=== PATIENT | male | born 1940 | race African-American/Black ===

== ENCOUNTER 2024-04-23 18:28 | Inpatient (IN) | payer OTHER ==
[2024-04-23] MEDS ORDERED: METHYLPREDNISOLONE 40 MG INJ ONE (19:16)
[2024-04-23 19:24] LABS: Absolute Basophils 0.1 K/uL (0-0.5); Absolute Eosinophils 0.1 K/uL (0-0.5); Absolute Monocytes 0.9 K/uL (0.1-1.3); Absolute Neutrophil 8.2 K/uL (1.8-8.0); Eosinophils % 1.4 % (0-4.4); Hematocrit 36.5 % (39.6-49.0); Hemoglobin 10.9 g/dL (13.6-17.9); MCH 21.1 pg (27.0-35.0); MCHC 29.9 g/dL (32.0-36.0); MCV 70.7 fL (80-100); Monocytes % 8.4 % (3.3-12.3); Neutrophils % 79.2 % (41.7-73.7); Nucleated Red Blood Cells % 0.1 % (0-0); Platelets 244 thou/uL (152-406); RBC Red Blood Cell Count 5.16 M/uL (4.33-5.43); Red Cell Distribution Width 29.8 % (12.1-15.2)
[2024-04-23 19:26] LABS: Anisocytosis 3+; Blood Morphology Comment NOTED (NOT SEEN); Hypochromasia 1+; Platelet Estimate ADEQ; White Blood Cell Scan OK (OK)
[2024-04-23 19:28] LABS: PT Prothrombin Time 21.3 SECONDS (9.4-12.5); Protime INR 2.04
--- NOTE | 2024-04-23 20:22 | RAD REPORT ---
EXAMINATION: CT HEAD WITHOUT CONTRAST CLINICAL INDICATION: Male, 84 years old.weak/numb legs;Weakness TECHNIQUE: Axial CT images from the skull base to the vertex without intravenous contrast. Coronal an d sagittal reformatted images were created from the data set. One or more of the following dose reduction techniques were used: Automated exposure control, adjustment of the mA and/or kV according to patient size, and/or iterative reconstruction. Unless otherwise specified, incidental findings do not require dedicated imaging follow-up. [id number]. COMPARISON: No prior exam. FINDINGS: INTRACRANIAL: No acute intracranial hemorrhage. No hydrocephalus. No mass effect or midline shift. Mi ld chronic small vessel ischemic changes.Age advanced cerebral atrophy. VASCULATURE: No visualized abnormalities in the arteries or dural venous sinuses. SCALP/SKULL: No significant soft tissue or osseous abnormalities. SINUSES: The visualized paranasal sinuses and mastoid air cells are predominantly clear. IMPRESSION: No acute intracranial abnormality.
[2024-04-23 20:48] LABS: ALT/SGPT 17 U/L (16-61); AST/SGOT 16 U/L (15-37); Albumin 2.6 g/dL (3.4-5.0); Albumin/Globulin Ratio 0.5 (1.1-1.8); Alkaline Phosphatase 141 U/L (45-117); BUN Blood Urea Nitrogen 87 mg/dL (7-18); Bicarbonate 23 mEq/L (21-32); Bilirubin Total 0.3 mg/dL (0.2-1.0); Globulin 5.6 g/dL (2.3-3.5); Glomerular Filtration Rate 18 ml/min (=/>90); Glucose Level 354 mg/dL (74-106); Magnesium 2.4 mg/dL (1.6-2.4); NT PRO-BNP 585 pg/mL (<450); Protein, Total 8.2 g/dL (6.4-8.2); Sodium Level 124 mEq/L (136-145); Troponin High Sensitivity 32.4 pg/mL (<58.9)
[2024-04-23 20:57] LABS: Bilirubin Direct < 0.2 mg/dL (0-0.2); Bilirubin Indirect, Calculated 0.1 mg/dL (0.2-0.8)
--- NOTE | 2024-04-23 22:13 | RAD REPORT ---
EXAM: CT CHEST, ABDOMEN AND PELVIS WITHOUT CONTRAST CLINICAL INDICATION: Male, 84 years old colon cancer TECHNIQUE: CT chest, abdomen and pelvis was performed, without IV contrast, as per department protoco l. Axial, sagittal and coronal reconstructions were obtained. One or more of the following dose reduction techniques were used: Automated exposure control, adjustment of the mA and/or kV according to the patient size, and/or iterative reconstruction. Unless otherwise specified, incidental findings do not require dedicated imaging follow-up. [id number]. COMPARISON: No prior exam. FINDINGS: The lack of intravenous contrast limits the sensitivity of this exam for evaluation of solid visceral organs, vascular structures, and retroperitoneum. Chest: LOWER NECK: Visualized thyroid gland and soft tissues are normal. Right upper chest wall pacemaker. LUNGS AND AIRWAYS: Airways are clear. No evidence of airspace or interstitial process.Centrilobular p araseptal emphysema. A few scattered sub-4 mm pulmonary nodules are noted which are probably benign. PLEURA: No pleural effusion. No pneumothorax. Hemidiaphragms are normally positioned. MEDIASTINUM AND LYMPH NODES: No mediastinal mass or fluid collection. Normal size mediastinal, hilar, and axillary lymph nodes. Mild distal esophageal thickening. Small hiatal hernia. THORACIC AORTA: Ascending thoracic aortic aneurysm measuring 4.2 cm. PULMONARY ARTERIES: Caliber is within normal limits. HEART: Normal heart size. Multivessel coronary artery diseaseNo significant pericardial effusion. Abdomen/Pelvis UPPER GI: No significant abnormality. LIVER: No significant focal abnormality. GALLBLADDER/BILE DUCTS: Cholecystectomy. No significant biliary ductal dilatation.? PANCREAS: Atrophy, but otherwise unremarkable. SPLEEN: Unremarkable. ADRENALS: Adrenal thickening without discrete mass. KIDNEYS AND URETERS: No hydronephrosis.Intermediate attenuation 1.8 cm lesion at the interpolar aspec t of the left kidney.Other low-density renal lesions bilaterally which are probably cysts. ABDOMINAL AORTA AND OTHER VESSELS: Moderate atherosclerotic changes without aortic aneurysm. IVC filt er PERITONEUM: No abnormal free fluid. No free air. LYMPH NODES: No pathologic lymphadenopathy. ABDOMINAL WALL: Unremarkable SMALL BOWEL/COLON: Mass present at the mid sigmoid colon presumably the patient's known colonic malig desean. No bowel obstruction. Mild diverticulosis without diverticulitis. URINARY BLADDER: Underdistended but grossly unremarkable. REPRODUCTIVE ORGANS: Prostatomegaly. MUSCULOSKELETAL: Multilevel degenerative changes in the spine. No acute fracture. L1 hemangioma. ADDITIONAL FINDINGS: None. IMPRESSION: 1. No acute findings within the chest, abdomen, or pelvis. 2. Mid sigmoid mass presumably the patient's reported colon cancer. No bowel obstruction. 3. Indeterminate renal lesions which can be further evaluated with nonemergent renal protocol CT or M RI clinically indicated.
--- NOTE | 2024-04-23 22:29 | RAD REPORT ---
EXAMINATION: US LOWER EXTREMITY VENOUS DOPPLER BILATERAL CLINICAL INDICATION: Male, 84 years old.bilateral leg swelling TECHNIQUE: Complete bilateral duplex sonography of the lower extremity veins was performed. The exami nation included compression for vein patency, color Doppler imaging and flow augmentation in response to distal compression of the distal external iliac, common femoral, femoral, popliteal, luciana ethel, tibial and great saphenous veins. [id number]. COMPARISON: No prior exams FINDINGS: Duplex sonography imaging demonstrates all deep examined to be fully compressible with spontaneous, p hasic and augmented flow bilaterally except for the right femoral vein which was incompletely compressible consistent with partially occlusive thrombus.. IMPRESSION: Positive for deep venous thrombosis in the right lower extremity. Incompletely occlusive thrombus in the right femoral vein present.. Negative for DVT in the left lower extremity. THIS REPORT CONTAINS FINDINGS THAT MAY BE CRITICAL TO PATIENT CARE. The emergent findings were commun icated to Dr. Carranza on 04/23/2024 10:26 PM.
--- NOTE | 2024-04-23 22:32 | RAD REPORT ---
EXAM: Right upper extremity venous ultrasound HISTORY: Right upper extremity pain and edema COMPARISON: None TECHNIQUE: Multiplanar grayscale and color Doppler images were obtained in a right upper extremity ve nous ultrasound. Spectral analysis of the Doppler waveforms were performed. FINDINGS: The internal jugular vein demonstrates normal compression and flow without evidence of thrombus. The subclavian vein demonstrates normal flow and augmentation without evidence of thrombus. The axillary vein demonstrates normal compression, flow, and augmentation without evidence of thrombu s. The right brachial vein has eccentric thrombus and is only partially compressible. The venous structures distal to the elbow are patent without thrombus. The cephalic and basilic veins are patent. IMPRESSION: Partially compressible right brachial vein consistent with nonocclusive right upper extremity deep ve nous thrombosis. THIS REPORT CONTAINS FINDINGS THAT MAY BE CRITICAL TO PATIENT CARE. The emergent findings were commun icated to Dr. Carranza on 04/23/2024 10:30 PM.
[2024-04-23] MEDS ORDERED: NA CHLORIDE 0.9% 500 ML ONE (22:35)
[2024-04-23] MEDS ORDERED: NA CHLORIDE 0.9% 1,000 ML ONE (22:35)
[2024-04-23] MEDS ORDERED: ALBUMIN HUMAN 25% 200 ML IV ONE (22:36)
--- NOTE | 2024-04-24 00:30 | ER ---
Nurse's Notes [facility] Name: Branden Adams Age: 84 yrs Sex: Male : 1940 Arrival Date: 04/23/2024 Time: 18:28 Bed 25 Private MD: Diagnosis: Acute on chronic renal failure, Hyponatremia, history of colon cancer, generalized weakness, hypoalbuminemia, Presentation: 04/23 18:35 Chief complaint: EMS states: Pt called for allergic reaction and hives. Was in the [address] 2 weeks ago for low hemoglobin and he was given Vanc which the pt is allergic to. Pt started having hives on his thighs, stomach, neck and face. BGL 393. Coronavirus screen: At this time, the client does not indicate any symptoms associated with coronavirus-19. Ebola Screen: No symptoms or risks identified at this time. 18:35 Method Of Arrival: EMS: [facility] 18:37 Onset: The symptoms/episode began/occurred gradually, 2 day(s) ago. Anaphylaxis [facility] evaluation, no signs or symptoms of anaphylaxis were noted. Initial Sepsis Screen: Does the patient meet any 2 criteria? No. Patient's initial sepsis screen is negative. Does the patient have a suspected source of infection? No. Patient's initial sepsis screen is negative. Risk Assessment: Do you want to hurt yourself or someone else? Patient reports no desire to harm self or others. 18:37 Acuity: JAD 3 jb4 Historical: - Allergies: 18:37 Vancomycin; jb4 18:37 PENICILLINS; jb4 18:37 Benadryl; jb4 - PMHx: 18:37 CHF; HTN; Colon CA; Pace maker; jb4 - Immunization history:: Adult Immunizations up to date. - Infectious Disease History:: Denies. - Social history:: Smoking status: Patient denies any tobacco usage or history of. Screenin:[address] [facility] ED Fall Risk Assessment (Adult) History of falling in the last 3 months, 4 including since admission No falls in past 3 months (0 pts) Confusion or Disorientation No (0 pts) Intoxicated or Sedated No (0 pts) Impaired Gait No (0 pts) Mobility Assist Device Used No (0 pt) Altered Elimination No (0 pt) Score/Fall Risk Level 0 - 2 = Low Risk Oriented to surroundings, Maintained a safe environment. Abuse screen: Denies threats or abuse. Nutritional screening: No deficits noted. Tuberculosis screening: No symptoms or risk factors identified. Assessment: 18:37 General: Appears in no apparent distress. uncomfortable, Behavior is calm, cooperative, jb4 appropriate for age. Pain: Complains of pain in right quadriceps and left quadriceps Pain does not radiate. Pain currently is 4 out of 10 on a pain scale. Quality of pain is described as itching Pain began 2-3 days ago. Neuro: Level of Consciousness is awake, alert, obeys commands, Oriented to person, place, time, situation. Cardiovascular: Patient's skin is warm and dry. Respiratory: Airway is patent Respiratory effort is even, unlabored, Respiratory pattern is regular, symmetrical. Derm: Skin is intact, Skin is pink, warm \T\ dry. Decubitus located on right heel(s) approximately 2.6 cm to 7.5 cm is stage I. Musculoskeletal: Circulation, motion, and sensation intact. Range of motion: intact in all extremities. 20:00 Reassessment: Patient appears in no apparent distress at this time. Patient and/or jb4 family updated on plan of care and expected duration. Pain level reassessed. Patient is alert, oriented x 3, equal unlabored respirations, skin warm/dry/pink. 21:00 Reassessment: Patient appears in no apparent distress at this time. Patient and/or jb4 family updated on plan of care and expected duration. Pain level reassessed. Patient is alert, oriented x 3, equal unlabored respirations, skin warm/dry/pink. 22:00 Reassessment: Patient appears in no apparent distress at this time. Patient and/or jb4 family updated on plan of care and expected duration. Pain level reassessed. Patient is alert, oriented x 3, equal unlabored respirations, skin warm/dry/pink. 23:00 Reassessment: Patient appears in no apparent distress at this time. Patient and/or jb4 family updated on plan of care and expected duration. Pain level reassessed. Patient is alert, oriented x 3, equal unlabored respirations, skin warm/dry/pink. Vital Signs: 18:37 BP 125 / 80; Pulse 79; Resp 16; Temp 98.7(O); Pulse Ox 98% on R/A; Weight 108.41 kg jb4 (R); Height 6 ft. 3 in. (R); 20:29 BP 115 / 67; Pulse 75; Resp 16; Pulse Ox 96% on R/A; jb4 22:00 BP 118 / 76; Pulse 80; Resp 16; Pulse Ox 99% on R/A; jb4 23:15 BP 129 / 82; Pulse 78; Resp 20; Pulse Ox 99% on R/A; jb4 04/24 01:02 BP 140 / 73; Pulse 72; Resp 15; Pulse Ox 96% on R/A; jb4 04/23 18:37 Body Mass Index 29.87 (108.41 kg, 190.5 cm) jb4 ED Course: 04/23 18:30 Patient arrived in ED. iw 18:31 Jose E Stephens MD is Attending Physician. sp3 18:35 Livan Daniels, FERNANDO is Primary Nurse. jb4 18:37 Arm band placed on right wrist. jb4 18:42 Triage completed. jb4 19:00 No provider procedures requiring assistance completed. Inserted saline lock: 20 gauge jb4 in left antecubital area, using aseptic technique. Blood collected. 19:00 Initial lab(s) drawn, by me, sent to lab. jb4 20:07 CT Head Brain wo Cont In Process Unspecified. EDMS 20:30 Patient has correct armband on for positive identification. Allergy band placed. Bed in jb4 low position. Call light in reach. Side rails up X 1. Provided Education on: plan of care. 21:21 Attending Physician role handed off by Jose E Stephens MD sp4 21:21 Inocente Carranza MD is Attending Physician. sp4 21:56 CT Chest Abdomen Pelvis W/O Contrast In Process Unspecified. EDMS 22:22 Extrem Venous W Compression [place] US In Process Unspecified. EDMS 22:22 UPPER EXTREMITY VENOUS UNILATE In Process Unspecified. EDMS 04/24 00:[address] MD is Hospitalizing Provider. sp4 01:03 Patient admitted, IV remains in place. jb4 Administered Medications: 04/23 19:21 Drug: MethylPrednisoLONE IVP 60 mg IVP once Route: IVP; Site: left antecubital; jb4 20:00 Follow up: Response: No adverse reaction jb4 22:45 Drug: Albumin IVPB 25 grams 100 ml IVPB once; (Note: Albumin 25% concentration) Volume: jb4 100 ml; Route: IVPB; Site: left antecubital; 23:27 Follow up: Response: No adverse reaction; IV Status: Completed infusion; IV Intake: jb4 100ml 22:45 Drug: NS 0.9% IV 500 ml 500 ml IV at 1 bolus once; to be given as a bolus over 30 jb4 minutes Volume: 500 ml; Route: IV; Rate: 1 bolus; Site: left antecubital; 23:15 Follow up: Response: No adverse reaction; IV Status: Completed infusion; IV Intake: jb4 500ml 23:27 Drug: Albumin IVPB 25 grams 100 ml IVPB once; (Note: Albumin 25% concentration) Volume: jb4 100 ml; Route: IVPB; Site: left antecubital; 04/24 01:06 Follow up: Response: No adverse reaction; IV Status: Completed infusion; IV Intake: jb4 100ml 04/23 23:34 Drug: NS 0.9% IV 1000 ml IV at 100 ml/hr Per protocol; to be given as a bolus over 60 jb4 minutes Route: IV; Rate: 100 ml/hr; Site: left antecubital; 04/24 01:06 Follow up: Response: No adverse reaction; IV Status: Infusion continued upon admission jb4 Medication: 01:03 VIS not applicable for this client. jb4 Intake: 04/23 23:15 IV: 500ml; Total: 500ml. jb4 23:27 IV: 100ml; Total: 600ml. jb4 04/24 01:06 IV: 100ml; Total: 700ml. jb4 Outcome: 00:29 Decision to Hospitalize by Provider. sp4 01:03 Admitted to ER Hold. Please see [facility] for further documentation. jb4 01:03 Condition: stable 01:03 Discharge instructions given to patient, Instructed on the need for admit, Demonstrated understanding of instructions, 02:28 Patient left the ED. lg3 Signatures: Dispatcher [employer] EDMS Concetta Hyde RN RN iw Bryson, James, RN RN jb4 Angie Magaña RN RN lg3 Jose E Stephens MD MD sp3 Inocente Carranza MD MD sp4 Corrections: (The following items were deleted from the chart) 04/23 23:35 18:37 Derm: Skin is intact, Skin is pink, warm \T\ dry. jb4 jb4
--- NOTE | 2024-04-24 00:30 | EDPHYS ---
Physician Documentation [facility] Name: Branden Adams Age: 84 yrs Sex: Male : 1940 Arrival Date: 04/23/2024 Time: 18:28 Bed 25 Private MD: ED Physician Inocente Carranza HPI: 04/23 19:26 This 84 yrs old Black Male presents to ER via EMS with complaints of Itching, sp3 generalized weakness. 19:26 84-year-old male with history of CHF, hypertension, colon cancer, status post pacemaker sp3 with recent discharge from [facility] for GI bleed now presents to the ED with chief complaint generalized weakness, numbness of bilateral lower extremities, and itching. Patient states that he had an allergic reaction to vancomycin while he was at [facility]. 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 Patient is a poor historian. He denies any continued melena, shortness of breath, chest pain, headache but he states that the numbness is only since he was released from the hospital 1 week ago.. 21:41 Patient was just discharged from [facility] 04/13/2024. Medications on discharge sp4 acetaminophen, evening, brimonidine, Jardiance 10 mg daily, ferrous sulfate daily gabapentin 300 mg twice a day, insulin glargine 10 units every morning, latanoprost, metoprolol tartrate 50 mg daily, omeprazole 20 daily, prednisolone ophthalmic suspension, rivaroxaban or Xarelto 20 mg daily, spironolactone 50 mg daily, tamsulosin daily, torsemide 20 mg oral Demadex 20 mg daily. Atorvastatin 20. 21:43 Based on record patient was managed at [facility] 04/04/2024 through 04/13/2024. sp4 Patient reportedly has history of colon cancer, follow-up was scheduled with Dr. Sheri Crabtree MD also [facility] primary care.. Historical: - Allergies: 18:37 Vancomycin; jb4 18:37 PENICILLINS; jb4 18:37 Benadryl; jb4 - PMHx: 18:37 CHF; HTN; Colon CA; Pace maker; jb4 - Immunization history:: Adult Immunizations up to date. - Infectious Disease History:: Denies. - Social history:: Smoking status: Patient denies any tobacco usage or history of. ROS: 19:31 Eyes: Negative for injury, pain, redness, and discharge, ENT: Negative for injury, sp3 pain, and discharge, Neck: Negative for injury, pain, and swelling, Cardiovascular: Negative for chest pain, palpitations, and edema, MS/Extremity: Negative for injury and deformity, Psych: Negative for depression, anxiety, suicide ideation, homicidal ideation, and hallucinations, Allergy/Immunology: Negative for hives, rash, and allergies, Endocrine: Negative for neck swelling, polydipsia, polyuria, polyphagia, and marked weight changes, 19:31 All other systems are negative, Exam: 19:31 Constitutional: This is a well developed, well nourished patient who is awake, alert, sp3 and in no acute distress. Head/Face: Normocephalic, atraumatic. Eyes: Pupils equal round and reactive to light, extra-ocular motions intact. Lids and lashes normal. Conjunctiva and sclera are non-icteric and not injected. Cornea within normal limits. Periorbital areas with no swelling, redness, or edema. ENT: Nares patent. No nasal discharge, no septal abnormalities noted. External auditory canals are clear. Oropharynx with no redness, swelling, or masses, exudates, or evidence of obstruction, uvula midline. Mucous membranes moist. Neck: Trachea midline, no thyromegaly or masses palpated, and no cervical lymphadenopathy. Supple, full range of motion without nuchal rigidity, or vertebral point tenderness. No Meningismus. Chest/axilla: Normal chest wall appearance and motion. Nontender with no deformity. No lesions are appreciated. Cardiovascular: Regular rate and rhythm with a normal S1 and S2. No gallops, murmurs, or rubs. Normal PMI, no JVD. No pulse deficits. Respiratory: Lungs have equal breath sounds bilaterally, clear to auscultation and percussion. No rales, rhonchi or wheezes noted. No increased work of breathing, no retractions or nasal flaring. Abdomen/GI: Soft, non-tender, with normal bowel sounds. No distension or tympany. No guarding or rebound. No evidence of tenderness throughout. Back: No spinal tenderness. No costovertebral tenderness. Full range of motion. MS/ Extremity: Pulses equal, no cyanosis. Neurovascular intact. Full, normal range of motion. Psych: Awake, alert, with orientation to person, place and time. Behavior, mood, and affect are within normal limits. 19:31 Skin: Scattered rash consistent with possible hives noted on chest and upper thighs as well as right upper extremity.. 19:31 Neuro: Normal neurological exam however patient states that he has numbness bilateral lower extremities. Patient did not follow to point discrimination test well. Limited history and physical., Vital Signs: 18:37 BP 125 / 80; Pulse 79; Resp 16; Temp 98.7(O); Pulse Ox 98% on R/A; Weight 108.41 kg jb4 (R); Height 6 ft. 3 in. (R); 20:29 BP 115 / 67; Pulse 75; Resp 16; Pulse Ox 96% on R/A; jb4 22:00 BP 118 / 76; Pulse 80; Resp 16; Pulse Ox 99% on R/A; jb4 23:15 BP 129 / 82; Pulse 78; Resp 20; Pulse Ox 99% on R/A; jb4 04/24 01:02 BP 140 / 73; Pulse 72; Resp 15; Pulse Ox 96% on R/A; jb4 04/23 18:37 Body Mass Index 29.87 (108.41 kg, 190.5 cm) jb4 MDM: 04/23 18:44 Medical Screening Exam initiated sp3 19:32 Data reviewed: vital signs, nurses notes, old medical records, lab test result(s), sp3 radiologic studies. ED course: 84-year-old male with PMH above with recent GI bleed now with generalized weakness and numbness and weakness of bilateral lower extremities. Patient also has itching and urticaria. Differential diagnosis includes allergic reaction, dehydration, continued GI bleed, electrolyte abnormality, to lesser degree TIA/CVA spectrum. Will obtain general labs, CT scan of the head, EKG and administer Solu-Medrol. Patient declined Benadryl stating that he may be allergic to that as well. Personal manager critical care is at bedside. Disposition probable admission for observation at minimum. Will sign out to nighttime physician for final reevaluation and final disposition.. 21:23 Differential Diagnosis altered mental status, sepsis, flu. Consideration of sp4 Admission/Observation Escalation of care including admission/observation considered. ED course: CLINICAL INDICATION: Male, 84 years old.weak/numb legs;Weakness TECHNIQUE: Axial CT images from the skull base to the vertex without intravenous contrast. Coronal and sagittal reformatted images were created from the data set. One or more of the following dose reduction techniques were used: Automated exposure control, adjustment of the mA and/or kV according to patient size, and/or iterative reconstruction. Unless otherwise specified, incidental findings do not require dedicated imaging follow-up. [id number]. COMPARISON: No prior exam. FINDINGS: INTRACRANIAL: No acute intracranial hemorrhage. No hydrocephalus. No mass effect or midline shift. Mild chronic small vessel ischemic changes.Age advanced cerebral atrophy. VASCULATURE: No visualized abnormalities in the arteries or dural venous sinuses. SCALP/SKULL: No significant soft tissue or osseous abnormalities. SINUSES: The visualized paranasal sinuses and mastoid air cells are predominantly clear. IMPRESSION: No acute intracranial abnormality. . 23:10 ED course: EXAM: CT CHEST, ABDOMEN AND PELVIS WITHOUT CONTRAST CLINICAL INDICATION: sp4 Male, 84 years old colon cancer TECHNIQUE: CT chest, abdomen and pelvis was performed, without IV contrast, as per department protocol. Axial, sagittal and coronal reconstructions were obtained. One or more of the following dose reduction techniques were used: Automated exposure control, adjustment of the mA and/or kV according to the patient size, and/or iterative reconstruction. Unless otherwise specified, incidental findings do not require dedicated imaging follow-up. [id number]. COMPARISON: No prior exam. FINDINGS: The lack of intravenous contrast limits the sensitivity of this exam for evaluation of solid visceral organs, vascular structures, and retroperitoneum. Chest: LOWER NECK: Visualized thyroid gland and soft tissues are normal. Right upper chest wall pacemaker. LUNGS AND AIRWAYS: Airways are clear. No evidence of airspace or interstitial process.Centrilobular paraseptal emphysema. A few scattered sub-4 mm pulmonary nodules are noted which are probably benign. PLEURA: No pleural effusion. No pneumothorax. Hemidiaphragms are normally positioned. MEDIASTINUM AND LYMPH NODES: No mediastinal mass or fluid collection. Normal size mediastinal, hilar, and axillary lymph nodes. Mild distal esophageal thickening. Small hiatal hernia. THORACIC AORTA: Ascending thoracic aortic aneurysm measuring 4.2 cm. PULMONARYARTERIES: Caliber is within normal limits. HEART: Normal heart size. Multivessel coronary artery diseaseNo significant pericardial effusion. Abdomen/Pelvis UPPER GI: No significant abnormality. LIVER: No significant focal abnormality. GALLBLADDER/BILE DUCTS: Cholecystectomy. No significant biliary ductal dilatation.? PANCREAS: Atrophy, but otherwise unremarkable. SPLEEN: Unremarkable. ADRENALS: Adrenal thickening without discrete mass. KIDNEYS AND URETERS: No hydronephrosis.Intermediate attenuation 1.8 cm lesion at the interpolar aspect of the left kidney.Other low-density renal lesions bilaterally which are probably cysts. ABDOMINAL AORTA AND OTHER VESSELS: Moderate atherosclerotic changes without aortic aneurysm. IVC filter. PERITONEUM: No abnormal free fluid. No free air. LYMPH NODES: No pathologic lymphadenopathy. ABDOMINAL WALL: Unremarkable SMALL BOWEL/COLON: Mass present at the mid sigmoid colon presumably the patient's known colonic malignancy. No bowel obstruction. Mild diverticulosis without diverticulitis. URINARYBLADDER: Underdistended but grossly unremarkable. REPRODUCTIVE ORGANS: Prostatomegaly. MUSCULOSKELETAL: Multilevel degenerative changes in the spine. No acute fracture. L1 hemangioma. ADDITIONAL FINDINGS: None. IMPRESSION: 1. No acute findings within the chest, abdomen, or pelvis. 2. Mid sigmoid mass presumably the patient's reported colon cancer. No bowel obstruction. 3. Indeterminate renal lesions which can be further evaluated with nonemergent renal protocol CT or MRI clinically indicated. . 23:12 ED course: EXAM: Right upper extremity venous ultrasound HISTORY: Right upper extremity sp4 pain and edema COMPARISON: None TECHNIQUE: Multiplanar grayscale and color Doppler images were obtained in a right upper extremity venous ultrasound. Spectral analysis of the Doppler waveforms were performed. FINDINGS: The internal jugular vein demonstrates normal compression and flow without evidence of thrombus. The subclavian vein demonstrates normal flow and augmentation without evidence of thrombus. The axillary vein demonstrates normal compression, flow, and augmentation without evidence of thrombus. The right brachial vein has eccentric thrombus and is only partially compressible. The venous structures distal to the elbow are patent without thrombus. The cephalic and basilic veins are patent. IMPRESSION: Partially compressible right brachial vein consistent with nonocclusive right upper extremity deep venous thrombosis. THIS REPORT CONTAINS FINDINGS THAT MAYBE CRITICAL TO PATIENT CARE. The emergent findings were communicated to Dr. Carranza on 04/23/2024 10:30 PM.. ED course: EXAMINATION: US LOWER EXTREMITYVENOUS DOPPLER BILATERAL CLINICAL INDICATION: Male, 84 years old.bilateral leg swelling TECHNIQUE: Complete bilateral duplex sonography of the lower extremity veins was performed. The examination included compression for vein patency, color Doppler imaging and flow augmentation in response to distal compression of the distal external iliac, common femoral, femoral, popliteal, peroneal, tibial and great saphenous veins. [id number]. COMPARISON: No prior exams FINDINGS: Duplex sonography imaging demonstrates all deep examined to be fully compressible with spontaneous, phasic and augmented flow bilaterally except for the right femoral vein which was incompletely compressible consistent with partially occlusive thrombus.. IMPRESSION: Positive for deep venous thrombosis in the right lower extremity. Incompletely occlusive thrombus in the right femoral vein present.. Negative for DVT in the left lower extremity. THIS REPORT CONTAINS FINDINGS THAT MAYBE CRITICAL TO PATIENT CARE. The emergent findings were communicated to Dr. Carranza on 04/23/2024 10:26 PM. . 04/23 18:54 Order name: Basic Metabolic Panel; Complete Time: 21:21 sp3 04/23 18:54 Order name: CBC with Diff; Complete Time: 20:02 sp3 04/23 18:54 Order name: LFT's; Complete Time: 21:21 sp3 04/23 18:54 Order name: Magnesium; Complete Time: 21:21 sp3 04/23 18:54 Order name: NT PRO-BNP; Complete Time: 21:21 sp3 04/23 18:54 Order name: PT-INR; Complete Time: 20:02 sp3 04/23 18:54 Order name: Troponin HS; Complete Time: 21:21 sp3 04/23 19:27 Order name: CBC Smear Scan; Complete Time: 20:02 EDMS 04/24 01:09 Order name: Osmolality, Urine EDMS 04/24 01:09 Order name: UR SODIUM EDMS 04/24 01:09 Order name: Urinalysis w/ reflexes EDMS 04/24 01:09 Order name: CBC with Automated Diff EDMS 04/24 01:09 Order name: CBC with Automated Diff EDMS 04/24 01:09 Order name: Comprehensive Metabolic Panel EDMS 04/24 01:09 Order name: Comprehensive Metabolic Panel EDMS 04/24 01:09 Order name: Magnesium EDMS 04/24 01:09 Order name: Magnesium EDMS 04/24 01:09 Order name: Phosphorus EDMS 04/24 01:09 Order name: Phosphorus EDMS 04/24 01:09 Order name: Basic Metabolic Panel EDMS 04/23 18:54 Order name: CT Head Brain wo Cont; Complete Time: 21:21 sp3 04/23 21:36 Order name: CT Chest Abdomen Pelvis W/O Contrast; Complete Time: 00:22 sp4 04/23 21:38 Order name: Extrem Venous W Compression [place] US; Complete Time: 00:22 sp4 04/23 21:45 Order name: UPPER EXTREMITY VENOUS UNILATE; Complete Time: 00:22 EDMS 04/23 18:54 Order name: Cardiac monitoring; Complete Time: 19:15 sp3 04/23 18:54 Order name: EKG - Nurse/Tech; Complete Time: 20:23 sp3 04/23 18:54 Order name: IV Saline Lock; Complete Time: 19:15 sp3 04/23 18:54 Order name: Labs collected and sent; Complete Time: 19:15 sp3 04/23 18:54 Order name: O2 Per Protocol; Complete Time: 19:15 sp3 04/23 18:54 Order name: O2 Sat Monitoring; Complete Time: 19:15 sp3 04/23 19:34 Order name: Labs - recollect needed: green top; Complete Time: 20:21 kmf Administered Medications: 19:21 Drug: MethylPrednisoLONE IVP 60 mg IVP once Route: IVP; Site: left antecubital; jb4 20:00 Follow up: Response: No adverse reaction jb4 22:45 Drug: Albumin IVPB 25 grams 100 ml IVPB once; (Note: Albumin 25% concentration) Volume: jb4 100 ml; Route: IVPB; Site: left antecubital; 23:27 Follow up: Response: No adverse reaction; IV Status: Completed infusion; IV Intake: jb4 100ml 22:45 Drug: NS 0.9% IV 500 ml 500 ml IV at 1 bolus once; to be given as a bolus over 30 jb4 minutes Volume: 500 ml; Route: IV; Rate: 1 bolus; Site: left antecubital; 23:15 Follow up: Response: No adverse reaction; IV Status: Completed infusion; IV Intake: jb4 500ml 23:27 Drug: Albumin IVPB 25 grams 100 ml IVPB once; (Note: Albumin 25% concentration) Volume: jb4 100 ml; Route: IVPB; Site: left antecubital; 04/24 01:06 Follow up: Response: No adverse reaction; IV Status: Completed infusion; IV Intake: jb4 100ml 04/23 23:34 Drug: NS 0.9% IV 1000 ml IV at 100 ml/hr Per protocol; to be given as a bolus over 60 jb4 minutes Route: IV; Rate: 100 ml/hr; Site: left antecubital; 04/24 01:06 Follow up: Response: No adverse reaction; IV Status: Infusion continued upon admission jb4 Disposition Summary: 04/24/24 00:29 Hospitalization Ordered Notes: Hospitalization Status: Inpatient Admission sp4 Provider: Aster Lane Location: Telemetry/[facility] (Inpatient) sp4 Condition: Stable sp4 Problem: new sp4 Symptoms: have improved sp4 Bed/Room Type: Standard sp4 Room Assignment: 211(04/24/24 01:22) kl Diagnosis - Acute on chronic renal failure, Hyponatremia, history of colon cancer, sp4 generalized weakness, hypoalbuminemia, Forms: - Medication Reconciliation Form sp4 - SBAR form sp4 - Leadership Thank You Letter sp4 Signatures: Dispatcher [employer] EDBecky Solomon RN RN kl Bryson, James, RN RN jb4 Jose E Stephens MD MD sp3 Inocente Carranza MD MD sp4 Erika Watson [facility] Corrections: (The following items were deleted from the chart) 04/23 18:56 18:56 Head Brain Wo Cont+CT.RAD.[email or web address] ordered. EDMS EDMS 21:45 21:39 Extremity Venous Uni Ltd+US.RAD.BRZ ordered. EDMS EDMS 04/24 01:22 00:29 sp4 elizabeth
--- NOTE | 2024-04-24 01:03 | P.HP ---
Certification for Inpatient Patient admitted to: Inpatient With expected LOS: >2 Midnights Practitioner: I am a practitioner with admitting privileges, knowledge of patient current condition, hospital course, and medical plan of care. Services: Services provided to patient in accordance with Admission requirements found in Title 42 Section 412.3 of the Code of Federal Regulations Patient History Date of Service: 04/24/24 Reason for admission: weakness, itchiness History of Present Illness: Chief complaint itchiness 84-year-old male with history of heart failure hypertension colon cancer pacemaker presents to the ER with complaints of itchiness generalized weakness. He was recently discharged from [facility] for GI bleed. The patient denied any dark or red stools in the ER. He reports itchiness has been going on for several days. He was noted to have history of colon cancer. He is following up with [facility]. In the ER he was noted to have a low sodium and elevated creatinine as well as high glucose. He also had arm swelling ultrasound showed a right arm DVT. The patient is previously on Xarelto 20 mg. He is being admitted for further evaluation and management Allergies diphenhydramine [From Benadryl] Allergy (Verified 04/24/24 03:53) Hives/Rash Penicillins Allergy (Verified 04/24/24 02:36) Hives/Rash vancomycin Allergy (Verified 04/24/24 02:36) Hives Review of Systems 10-point ROS is otherwise unremarkable Physical Examination - Physical Exam General: Alert, Oriented x3 HEENT: Atraumatic, Normocephalic Respiratory: Clear to auscultation bilaterally, Normal air movement Cardiovascular: Regular rate/rhythm, Normal S1 S2 Gastrointestinal: Soft and benign, Non-distended Musculoskeletal: No clubbing Integumentary: No rashes - Studies Laboratory Data (last 24 hrs) 04/23/24 04/23/24 04/23/24 20:18 19:13 19:13 WBC 10.30 Hgb 10.9 L Hct 36.5 L Plt Count 244 PT 21.3 H INR 2.04 Sodium 124 L Potassium 5.0 BUN 87 H Creatinine 3.17 H Glucose 354 H Magnesium 2.4 Total Bilirubin 0.3 AST 16 ALT 17 Alkaline Phosphatase 141 H Assessment and Plan - Problems (Diagnosis) (1) Itch Current Visit: Yes Status: Acute (2) Anemia Current Visit: Yes Status: Acute (3) Colon cancer Current Visit: Yes Status: Acute (4) Hyponatremia Current Visit: Yes Status: Acute (5) Diabetes Current Visit: Yes Status: Acute - Plan Chief complaint itchiness 84-year-old male with history of heart failure hypertension colon cancer pacemaker presents to the ER with complaints of itchiness generalized weakness. Pruritis --?related to christina --monitor electrolytes, ivf --order lotion, loose clothes, carefully consider antihistamine weakness --likely multifactorial, including anemia microcytic anemia recent GI bleed colon cancer chronic anticoagulation --hgb stable, transfuse hgb < 7, outpatient oncology followup diabetes --uncontrolled --IVF,ssi, check AIC --await home med rec CHRISTINA/CKD hyperkalemia hyponatremia --renal consult called --repeat BMP in 4 hours, and in AM --noncontrast CT pending, urine studies right arm DVT --order heparin drip HTN CHF --await medication reconciliation - Advance Directives Does patient have a Living Will: No Does patient have a Durable POA for Healthcare: No
[2024-04-24] MEDS: HEPARIN 5000 UNIT/ML 1 ML VIAL IV ONE ×2 (01:05→03:46)
[2024-04-24] MEDS ORDERED: GLUCAGON 1 MG/VIAL IM PRN (01:05)
[2024-04-24] MEDS ORDERED: D10W 125 ML IV PRN (01:05)
[2024-04-24] MEDS: NA CHLORIDE 0.9% 1,000 ML IV SCH ×2 (02:00→13:02)
[2024-04-24 03:28] LABS: Specific Gravity 1.014 (1.005-1.030); Sqamous Epithelial <5 /HPF (None Seen); Urine Bacteria None Seen /HPF (<20); Urine Bilirubin NEGATIVE (Negative); Urine Blood Trace (Negative); Urine Clarity Clear (Clear); Urine Color Colorless (Yellow); Urine Culture Reflex Order NOT NEEDED; Urine Glucose 4+ (Over) (Negative); Urine Ketones NEGATIVE (Negative); Urine Microscopic Reflex YN ORDER UMIC; Urine Nitrite NEGATIVE (Negative); Urine Protein NEGATIVE (Negative); Urine RBC <5 /HPF (None Seen); Urine Urobilinogen Normal (Normal); Urine WBC <5 /HPF (<5); Urine pH 5.5 (5.0-7.0)
[2024-04-24] MEDS: HEPARIN/D5W 25,000 UNIT/500 ML BAG IV SCH (03:40)
[2024-04-24 04:09] VITALS: O2SAT 95; BMI 27.5
[2024-04-24] MEDS: SOD POLYSTYREN SUL 15 GM/60 ML UCUP PO ONE (06:44)
[2024-04-24] MEDS: CALCIUM GLUCONATE 1 GM IVPB 1 GM/50 ML BAG IV ONE (06:47)
[2024-04-24] MEDS: INSULIN REGULAR (HUMAN) 100 UNIT/ML SQ SCH (07:30)
[2024-04-24 09:02] LABS: Anion Gap 13.5 mEq/L (5.0-15.0); Potassium 5.5 mEq/L (3.5-5.1)
--- NOTE | 2024-04-24 14:01 | P.PN ---
Date of Service: 04/24/24 Subjective Awake and feeling well on heparin gtt ROS 10 point ROS as noted above, otherwise negative Physical Exam General: AAO x3, NAD, conversing well HEENT: Atraumatic, Normocephalic Respiratory: Clear to auscultation bilaterally, Normal air movement, on RA Cardiovascular: RRR, Normal S1 S2 Gastrointestinal: Soft and benign, Non-distended Musculoskeletal: No clubbing Integumentary: No rashes Neurological: normal speech, normal affect Vitals Reviewed Problem list CHRISTINA Uremia associated with puritis Hx CKD with electrolyte imbalance Right arm DVT Weakness/debilitation Microcytic anemia Recent GI bleed COlon cancer Chronic anticoagulation Diabetes mellitus HTN CHF Assessment and Plan CHRISTINA Uremia associated with puritis Hx CKD with electrolyte imbalance -Nephrology consulted -BUN/creatinine 77/2.30 -gentle IVF -Lokelma daily -Calcium gluconate Right arm DVT -heparin gtt Weakness/debilitation -Physical therapy Microcytic anemia Recent GI bleed COlon cancer Chronic anticoagulation -H/H stable -Transfuse PRN Diabetes mellitus -uncontrolled, serum glucose 348 -A1C 7.5 -accucheck with SSI -IVF HTN CHF -continue home medications DVT ppx heparin gtt Full code LOS 2-3 days
--- NOTE | 2024-04-24 15:24 | CON ---
Date of Consultation: 04/24/2024 Reason For Consultation: Elevated BUN and creatinine, hyperkalemia. History Of Present Illness: This is a pleasant 84-year-old gentleman with significant past medical h istory of recently diagnosis of colon cancer, no treatment yet, DVT. The patient apparently treated in [facility] before. The patient brought to the hospital with itching and generalized weakne ss and some rectal bleed. The patient found to have hyperkalemia, elevation in BUN and creatinine. For that reason, we have been consulted. The patient denied taking any nonsteroidal. According to t he patient, no recent exposure to contrast. No recent change in his medications. Reviewing home med ications, the patient had been on iron and spironolactone with torsemide as an insulting factor. Ove r the night, the patient was started on hydration. Kidney function slightly improved and the potassi um still elevated. Past Medical History: Include: 1. Colon cancer. 2. GI bleed. 3. DVT. 4. CAD complicated with bradycardia, status post ICD placement and replacement. 5. Renal cyst. Past Surgical History: Include ICD placement and replacement. Allergies: TO DIPHENHYDRAMINE, PENICILLIN, VANCOMYCIN. Home Medications: Include torsemide, Flomax, spironolactone, Xarelto, prednisone, omeprazole, metopr olol, gabapentin, insulin, ferrous sulfate, atorvastatin, and Tylenol. Review of Systems: Head and Neck: No red eye. No ear pain. GI: Has rectal bleed. : No polyuria. No dysuria. No hematuria. MACHINE TECH: Not applicable. Respiratory: No shortness of breath. Cardiovascular: No chest pain. Endocrine: No polydipsia. Skin: No rash. Neuro: Has neuropathy. Has fatigue. Musculoskeletal: Generalized fatigue. Physical Examination: General: When I saw the patient, patient lying in bed, on room air. Vital Signs: Blood pressure 123 /67, pulse of 83, afebrile. Saturation 96 on room air. Chest: Clear to auscultation. Heart: S1, S2. Systolic murmur. Abdomen: Soft, nontender. Extremities: No edema. Neurologic: Alert. No focality. Laboratory Data: WBC 10.3, hemoglobin 10.9, sodium 129, potassium 5.5, bicarb 24, BUN 77, creatinine 2.3, calcium 9.3, yesterday. Sodium 124, potassium 5, bicarb 23, BUN 87, creatinine 3.1, GFR of 18. Current Medications: The patient on, it includes: 1. Heparin. 2. Calcium carbonate. 3. IV fluids. Imaging: CT abdomen did not show hydronephrosis. It showed multiple cyst on the kidney bilaterally with a questionable cyst. No suspect of any tumors. Assessment And Plan: 1. Acute kidney injury, questionable on chronic kidney disease secondary to prerenal, dehydration sup erimposed with torsemide and spironolactone complicated with hyperkalemia, nonoliguric. No signific ant acidosis. I am going to go ahead and continue on the hydration. We will increase IV fluid to 10 0 per hour. I agree with holding the torsemide and the spironolactone for the time being and we will follow up the patient. a. I will send for PTH to evaluate the chronicity of the disease. b. We will follow up the patient closely. 2. Hyperkalemia secondary to renal failure superimposed with spironolactone, superimposed with questi onable GI bleed, on the recovery. a. I agree with holding spironolactone. b. Continue hydration. c. We will start the patient on Lokelma. d. I am going to go ahead and send for TSH, and we will follow up the patient. 3. GI bleed with the presence of DVT. We will follow up with the Primary regarding the anticoagulati on. 4. Renal cyst, simple, bilateral. No need for any intervention for the time being. 5. Hyponatremia with the presence of hyperkalemia, to rule out any adrenal insufficiency. I am going to go ahead and send for cortisol and we will follow up. Mostly, looked to me it is depletional giv en the improvement on the IV fluid and no hypotension, and the CT of the abdomen did not show any occ upying lesion on the adrenal area. Thank you, Dr. Rodarte, for allowing us to participate in the care of your patient. Time spent examining the patient [id number], reviewing data, lab and radiology, placing order, disc ussing the case with the patient, discussing the case with the executive officer special warfare team including hospitalist and nursing staff more than 75 minutes. CAYLA Voice ID: [id number] Report ID: [id number]
[2024-04-24] MEDS: GABAPENTIN 300 MG CAP PO SCH (21:29)
[2024-04-24] MEDS: ATORVASTATIN 20 MG TAB PO SCH (21:30)
[2024-04-24] MEDS: Mupirocin NASAL 2 APPL/1 GM TUBE NAS SCH (21:30)
[2024-04-24] MEDS: hydrOXYzine HCL 25 MG TAB PO ONE (23:59)
[2024-04-25 05:32] LABS: Absolute Basophils 0.1 K/uL (0-0.5); Absolute Lymphocytes (CBC) 1.2 K/uL (0.7-4.9); Absolute Monocytes 1.2 K/uL (0.1-1.3); Absolute Neutrophil 7.3 K/uL (1.8-8.0); Basophils % 0.7 % (0-1.3); Eosinophils % 0.2 % (0-4.4); Hematocrit 28.7 % (39.6-49.0); Hemoglobin 8.9 g/dL (13.6-17.9); Lymphocytes % 11.9 % (15.3-44.8); MCH 21.7 pg (27.0-35.0); MPV 8.2 fL (7.6-11.3); Monocytes % 12.1 % (3.3-12.3); Neutrophils % 75.1 % (41.7-73.7); Platelets 195 thou/uL (152-406)
[2024-04-25 05:33] LABS: Red Cell Distribution Width 29.1 % (12.1-15.2)
[2024-04-25 05:48] LABS: Albumin 2.8 g/dL (3.4-5.0); Albumin/Globulin Ratio 0.6 (1.1-1.8); Alkaline Phosphatase 79 U/L (45-117); Anion Gap 8.9 mEq/L (5.0-15.0); BUN Blood Urea Nitrogen 63 mg/dL (7-18); Bicarbonate 26 mEq/L (21-32); Bilirubin Total 0.4 mg/dL (0.2-1.0); Creatine Phosphokinase 47 U/L (39-308); Globulin 4.4 g/dL (2.3-3.5); Glomerular Filtration Rate 42 ml/min (=/>90); Glucose Level 182 mg/dL (74-106); Magnesium 2.4 mg/dL (1.6-2.4); Phosphorus 3.1 mg/dL (2.5-4.9); Potassium 3.9 mEq/L (3.5-5.1); Protein, Total 7.2 g/dL (6.4-8.2); Sodium Level 133 mEq/L (136-145); Thyroid Stimulating Hormone 0.602 uIU/mL (0.358-3.740)
[2024-04-25 05:54] LABS: ALT/SGPT < 14 U/L (16-61); AST/SGOT < 10 U/L (15-37)
[2024-04-25] MEDS: SODIUM ZIRCONIUM CYCLOSILICATE 10 GM/PKT PO SCH (08:31)
[2024-04-25] MEDS: DORZOLAMIDE OPTH SCH (09:00)
[2024-04-25] MEDS ORDERED: APIXABAN 5 MG TABLET PO SCH (09:00)
[2024-04-25] MEDS: BRIMONIDINE OPTH SCH (09:00)
[2024-04-25] MEDS: PREDNISOLONE 1% OPTH SCH (09:00)
[2024-04-25] MEDS: PANTOPRAZOLE 40MG TABLET PO SCH (09:44)
[2024-04-25] MEDS: FERROUS SULFATE 325 MG TAB PO SCH (09:45)
[2024-04-25] MEDS: APIXABAN 2.5 MG TABLET PO SCH (09:45)
[2024-04-25] MEDS: TAMSULOSIN 0.4 MG SR CAP PO SCH (09:46)
[2024-04-25] MEDS: METOPROLOL TAR 50 MG TAB PO SCH (09:47)
[2024-04-25] MEDS: NA CHLORIDE 0.9% 1,000 ML IV SCH (12:16)
--- NOTE | 2024-04-25 12:19 | P.PN ---
Date of Service: 04/25/24 Subjective Awake and feeling well on heparin gtt ROS 10 point ROS as noted above, otherwise negative Physical Exam General: Alert and oriented x3, NAD, conversing well Respiratory: Clear BBS, nonlabored breathing, on RA Cardiovascular: paced rhythm, Normal S1 S2 Gastrointestinal: Soft on palpation, Non-distended Musculoskeletal: No clubbing Integumentary: No rashes Neurological: normal speech, normal affect Vitals Reviewed Problem list CHRISTINA Uremia associated with puritis Hx CKD with electrolyte imbalance Right arm DVT Weakness/debilitation Microcytic anemia Recent GI bleed COlon cancer Chronic anticoagulation Diabetes mellitus HTN CHF Assessment and Plan CHRISTINA Uremia associated with puritis Hx CKD with electrolyte imbalance -Nephrology consulted -monitor BUN/creatinine daily -gentle IVF -Lokelma daily -Calcium gluconate Right arm DVT -heparin gtt Weakness/debilitation -Physical therapy Microcytic anemia Recent GI bleed COlon cancer Chronic anticoagulation -H/H stable -Transfuse PRN Diabetes mellitus -A1C 7.5 -accucheck with SSI -IVF HTN CHF -continue home medications Interval Hospital course 04/25/24 -Kidney function improving -UOP appropriate for 04/24 -Nephrology following -Continue heparin Gtt and monitor of GI bleed DVT ppx heparin gtt Full code LOS 2-3 days
--- NOTE | 2024-04-25 20:01 | PN ---
Date of Progress Note: 04/25/2024 Subjective: The patient was admitted to the hospital with GI bleed, DVT, hyperkalemia with acute kidney injury. The patient's hyperkalemia secondary to GI bleed, acute kidney injury secondary to prerenal. After hydration, kidney function has been improved significantly. Physical Examination: Vital Signs: Blood pressure 140/75, pulse of 71, afebrile. Chest: Clear to auscultation. Heart: S1, S2. Regular. Abdomen: Soft, nontender. Extremities: Trace edema. Swelling on the left upper arm. Neurologic: Alert. No focality. Laboratory Data: Hemoglobin 8.9. Sodium 133, potassium 3.9, bicarb 26, BUN 63, creatinine down to 1.6, GFR of 42, calcium of 8.8, uric acid of 10, albumin 2.8. Current Medications: The patient on include: 1. Lokelma. 2. IV fluid. 3. Flomax. 4. Ferrous sulfate. 5. Gabapentin. 6. Atorvastatin. 7. Metoprolol. Assessment And Plan: 1. Acute kidney injury secondary to poor perfusion, acute tubular necrosis. Continue to recover. The patient looked to me on the normal volume. I am going to go ahead and discontinue IV fluid for the time being and we will watch the patient. 2. Hyperkalemia secondary to gastrointestinal bleed superimposed with renal failure, recovered, resolved. We will go ahead and hold the Lokelma, and we will monitor. 3. Disproportion BUN and creatinine secondary to GI bleed. We will follow up with primary. Discontinue hydration. 4. Hyponatremia, depletional. Recovered, resolved. Discontinue IV fluid. 5. Renal cyst. We will follow up as outpatient. Time spent examining the patient [id number] reviewing data lab and an audiology placing order discussing the case with the patient discussing the case with the [place] including hospitalist and nursing staff more than 55-minute CAYLA Voice ID: [id number] Report ID: [id number] NOLAN
[2024-04-25] MEDS: [UNRECOGNIZED DRUG - OTHER] OPTH SCH (21:00)
[2024-04-25 21:20] LABS: UR PROTEIN 38.8 mg/dL (<11.9); Urine Protein/Creatinine Ratio 0.54 ratio (<0.15)
[2024-04-26 02:45] LABS: Albumin 2.5 g/dL (3.4-5.0); Anion Gap 7.4 mEq/L (5.0-15.0); Phosphorus 2.8 mg/dL (2.5-4.9); Potassium 4.4 mEq/L (3.5-5.1)
[2024-04-26 12:13] VITALS: BP 148/81; TEMP 97.8
[2024-04-26] MEDS ORDERED: GUAIFENESIN/DM 5 ML UCUP PO PRN (12:49)
--- NOTE | 2024-04-26 12:55 | P.DS ---
Admission Date: 04/24/24 Discharge Date: 04/26/24 Disposition: TRANSFER TO [facility] Discharge Condition: GOOD Reason for Admission: weakness, itchiness Brief History of Present Illness: Diagnosis CHRISTINA Uremia associated with puritis Hx CKD with electrolyte imbalance Right arm DVT Weakness/debilitation Microcytic anemia Recent GI bleed COlon cancer Chronic anticoagulation Diabetes mellitus HTN CHF HPI 04/24/2024 84-year-old male with history of heart failure hypertension colon cancer pacemaker presents to the ER with complaints of itchiness generalized weakness. He was recently discharged from [facility] for GI bleed. The patient denied any dark or red stools in the ER. He reports itchiness has been going on for several days. He was noted to have history of colon cancer. He is following up with [facility]. In the ER he was noted to have a low sodium and elevated creatinine as well as high glucose. He also had arm swelling ultrasound showed a right arm DVT. The patient is previously on Xarelto 20 mg. He is being admitted for further evaluation and management Hospital Course: Patient was admitted and treated for the following diagnosis. CHRISTINA Uremia associated with puritis Hx CKD with electrolyte imbalance -Nephrology consulted -monitored BUN/creatinine daily -gentle IVF -Lokelma daily -Calcium gluconate Right arm DVT -heparin gtt -tolerated well Weakness/debilitation -Physical therapy Microcytic anemia Recent GI bleed Clon cancer Chronic anticoagulation -H/H stable -Transfered for colorectal surgery Diabetes mellitus -A1C 7.5 -accucheck with SSI -IVF HTN CHF -continue home medications On 04/26/2024, Branden was seen on morning rounds and deemed hemodynamically stable and appropriate [facility] and interventional radiology for upper and lower extremity DVT. Physical Exam General: AAO x3, NAD, conversing well Respiratory: nonlabored breathing, on RA Cardiovascular: paced rhythm, Normal S1 S2 Gastrointestinal: Soft on palpation, Non-distended, active bowel sounds Musculoskeletal: No clubbing Integumentary: No rashes Neurological: normal speech, normal affect Vital Signs/Physical Exam: Temp Pulse Resp BP Pulse Ox 97.8 F 71 16 148/81 H 100 04/26/24 12:00 04/26/24 12:00 04/26/24 12:00 04/26/24 12:00 04/26/24 12:00 Laboratory Data at Discharge: WBC 9.80 thou/uL (4.3-10.9) 04/25/24 04:45 Hgb 8.9 g/dL (13.6-17.9) L 04/25/24 04:45 Hct 28.7 % (39.6-49.0) L 04/25/24 04:45 Plt Count 195 thou/uL (152-406) 04/25/24 04:45 PT 21.3 SECONDS (9.4-12.5) H 04/23/24 19:13 INR 2.04 04/23/24 19:13 APTT 62.3 SECONDS (24.3-36.9) H 04/26/24 02:05 Sodium 134 mEq/L (136-145) L 04/26/24 02:05 Potassium 4.4 mEq/L (3.5-5.1) 04/26/24 02:05 BUN 48 mg/dL (7-18) H 04/26/24 02:05 Creatinine 1.37 mg/dL (0.70-1.30) H 04/26/24 02:05 Glucose 161 mg/dL (74-106) H 04/26/24 02:05 Uric Acid 10.0 mg/dL (3.5-7.2) H 04/25/24 04:45 Phosphorus 2.8 mg/dL (2.5-4.9) 04/26/24 02:05 Magnesium 2.4 mg/dL (1.6-2.4) 04/25/24 04:45 Total Bilirubin 0.4 mg/dL (0.2-1.0) 04/25/24 04:45 AST < 10 U/L (15-37) L 04/25/24 04:45 ALT < 14 U/L (16-61) L 04/25/24 04:45 Alkaline Phosphatase 79 U/L (45-117) 04/25/24 04:45 Home Medications: Acetaminophen 650 mg PO Q6H PRN 04/24/24 Atorvastatin Calcium 20 mg PO BEDTIME 04/24/24 Brimonidine/Dorzolamide/Pf [Brimonidine 0.15%-Dorzolam 2%] 1 drop OP BID 04/24/24 Empagliflozin [Jardiance] 10 mg PO DAILY 04/24/24 Ferrous Sulfate 325 mg PO DAILY 04/24/24 Gabapentin 300 mg PO BID 04/24/24 Insulin Glargine,Hum.rec.anlog [Lantus] 10 unit SQ DAILY 04/24/24 Latanoprost Ophth [Xalatan 0.005%*] 1 drop EACH EYE BEDTIME 04/24/24 Metoprolol Tartrate 50 mg PO DAILY 04/24/24 Omeprazole 20 mg PO DAILY 04/24/24 Prednisolone Acetate [Pred Forte] 1 drop EACH EYE DAILY 04/24/24 Rivaroxaban [Xarelto] 20 mg PO BEDTIME 04/24/24 Spironolactone [Aldactone] 50 mg PO DAILY 04/24/24 Tamsulosin [Flomax] 0.4 mg PO DAILY 04/24/24 Torsemide [Demadex] 20 mg PO DAILY 04/24/24 Followup: NONE,NONE [Primary Care Provider] -
[2024-04-26] MEDS: HYDROCODONE/CHLORPHEN 5 ML/OSYR PO ONE (14:17)
--- NOTE | 2024-04-26 23:37 | PN ---
Date of Progress Note: 04/26/2024 Chief Complaint: Acute kidney injury. Subjective: The patient was admitted to the hospital because of GI bleeding, DVT. He was found to h ave hyperkalemia and acute kidney injury. Hyperkalemia was due to GI bleeding and acute kidney injur y. After IV fluids were started, renal function has improved significantly. Review of Systems: Denies chest pain, palpitation. Physical Examination: Lungs: Clear to auscultation bilaterally. Heart: S1, S2. Abdomen: Soft. Extremities: Swelling in the left upper extremities. Impression And Plan: 1. Acute kidney injury secondary to acute tubular necrosis. Renal function improved with IV hydratio n. Avoid nephrotoxic medication. Continue to monitor renal function. 2. Hyperkalemia secondary to gastrointestinal bleeding superimposed with renal failure was s topped. 3. Elevated BUN and creatinine ratio secondary to GI bleeding. Management for GI bleeding by primary team. 4. Hyponatremia, depletional. IV fluids were started. Sodium level is gradually improving. 5. Renal cyst. The patient will follow up with Nephrology outpatient. ANYI/DENILSON Voice ID: [id number] Report ID: [id number]
--- NOTE | 2024-04-29 12:26 | EKG ---
Test Date: 2024-04-23 Test Time: 19:36:43 Investment Banking Manager: PETAR MEASUREMENT RESULTS: Intervals: Rate: 79 ME: 148 QRSD: 146 QT: 424 QTc: 486 [place]: P: 21 ME: 148 QRS: -90 T: 89 INTERPRETIVE STATEMENTS: Atrial-sensed ventricular-paced rhythm Biventricular pacemaker detected Abnormal ECG No previous ECG available for comparison Electronically Signed On 04-29-24 12:16:51 [employer] HELPER by Delta Null
== END 2024-04-26 14:50 | disposition short-term general hospital (02) | DRG 640 ==
LOC: ER 18:28 → 2ND 04-24 01:03
PROVIDERS: ADMIT Internal Medicine; ATTEND Internal Medicine
PROC: 02HV33Z Insertion of Infusion Device into Superior Vena Cava, Percutaneous Approach (ICD-10-PCS; principal; 2024-04-24)
DX: E87.1 Hypo-osmolality and hyponatremia (principal); N17.0 Acute kidney failure with tubular necrosis; C18.9 Malignant neoplasm of colon, unspecified; I13.0 Hypertensive heart and chronic kidney disease with heart failure and stage 1 through stage 4 chronic kidney disease, or unspecified chronic kidney disease; K92.2 Gastrointestinal hemorrhage, unspecified; I82.621 Acute embolism and thrombosis of deep veins of right upper extremity; E87.5 Hyperkalemia; I50.9 Heart failure, unspecified; N18.9 Chronic kidney disease, unspecified; E11.22 Type 2 diabetes mellitus with diabetic chronic kidney disease; D63.1 Anemia in chronic kidney disease; D50.9 Iron deficiency anemia, unspecified; N28.1 Cyst of kidney, acquired; L29.9 Pruritus, unspecified; E88.09 Other disorders of plasma-protein metabolism, not elsewhere classified; Z88.0 Allergy status to penicillin; Z88.1 Allergy status to other antibiotic agents; Z88.8 Allergy status to other drugs, medicaments and biological substances; Z86.718 Personal history of other venous thrombosis and embolism; Z95.810 Presence of automatic (implantable) cardiac defibrillator
CPT/HCPCS: 36415; 70450; 71250; 74176; 80048; 80053; 80069; 80076; 81001; 82533; 82550; 82570; 82947; 83036; 83735; 83880; 83935; 83970; 84156; 84300; 84443; 84484; 84550; 85025; 85610; 85730; 93005; 93970; 93971; 96365; 96366; 96375; 97110; 97161; 97530; 99285; J0612; J1644; J2919; J7030; J7040; P9047

== ENCOUNTER 2024-06-03 18:29 | Inpatient (IN) | payer OTHER ==
--- NOTE | 2024-06-03 19:20 | RAD REPORT ---
EXAM: Foot Right 3 View HISTORY: PAIN COMPARISON: None FINDINGS: Bones: No acute fracture identified. Osteopenia. Alignment:No significant malalignment. Degenerative changes:Calcaneal spurs. Other: n/a IMPRESSION: No evidence of acute osseous abnormality involving the imaged foot.
--- NOTE | 2024-06-03 19:24 | RAD REPORT ---
EXAM: Chest Single View HISTORY: 84 years Male COUGH COMPARISON: None. FINDINGS: LUNGS/PLEURA: No pleural effusions or pneumothorax. No pulmonary edema. Low lung volumes. CARDIAC/MEDIASTINUM: The cardiac silhouette is within normal limits. UPPER ABDOMEN: No significant abnormality. BONES: No acute abnormality. LINES/TUBES/OTHER: Pacemaker present. IMPRESSION: Low lung volumes without definite acute process. Recommend subsequent chest CT.
--- NOTE | 2024-06-03 19:32 | RAD REPORT ---
EXAM: Chest Abd Pelvis Wo Con CLINICAL INDICATION: Male, 84 years old Abdominal distention;Cough TECHNIQUE: CT chest, abdomen and pelvis was performed, without IV contrast, as per department protoco l. Axial, sagittal and coronal reconstructions were obtained. One or more of the following dose reduction techniques were used: Automated exposure control, adjustment of the mA and/or kV according to the patient size, and/or iterative reconstruction. Unless otherwise specified, incidental findings do not require dedicated imaging follow-up. [id number]. COMPARISON: 04/23/2024 FINDINGS: The lack of intravenous contrast limits the sensitivity of this exam for evaluation of solid visceral organs, vascular structures, and retroperitoneum. ---THORAX--- LOWER NECK AND CHEST WALL: Visualized thyroid gland and soft tissues are normal. LUNGS AND AIRWAYS: Centrilobular and paraseptal emphysema. Minimal basilar nodularity.No suspicious a nd/or stable pulmonary nodules. PLEURA: No pleural effusion. No pneumothorax. MEDIASTINUM AND LYMPH NODES: No mediastinal mass or fluid collection. Normal size mediastinal, hilar, and axillary lymph nodes. Mild distal esophageal thickening. THORACIC AORTA: Ascending thoracic aortic aneurysm measuring 4.3 cm. PULMONARY ARTERIES: Enlarged main pulmonary arteries could indicate pulmonary artery hypertension. Un able to evaluate for pulmonary emboli due to either protocol or lack of contrast. HEART: Normal heart size. Moderate coronary artery calcifications.Trace pericardial effusion. ---ABDOMEN/PELVIS--- UPPER GI: No significant abnormality. LIVER: Cirrhotic liver morphology. No focal masses. GALLBLADDER/BILE DUCTS: Cholecystectomy. No significant biliary ductal dilatation.? PANCREAS: Atrophy, but otherwise unremarkable. SPLEEN: Unremarkable. ADRENALS: No adrenal masses. KIDNEYS AND URETERS: No hydronephrosis.Previously noted indeterminate renal lesions which can be furt her assessed with dedicated imaging. ABDOMINAL AORTA AND OTHER VESSELS: Mild atherosclerotic changes. IVC filter. PERITONEUM: No abnormal free fluid. No free air. LYMPH NODES: No pathologic lymphadenopathy. ABDOMINAL WALL: Unremarkable SMALL BOWEL/COLON: Sigmoid mass which is concentric and measures approximately 5 cm in length.No mary anne l obstruction Mild diverticulosis without diverticulitis. URINARY BLADDER: Underdistended but grossly unremarkable. REPRODUCTIVE ORGANS: Mild prostatomegaly. ---COMBINED--- MUSCULOSKELETAL: Multilevel degenerative changes in the spine. No acute fracture. ADDITIONAL FINDINGS: None. IMPRESSION: Mild nodularity in the lower lungs bilaterally could reflect mild pneumonia or pneumonitis. Known sigmoid mass but no acute findings within the abdomen or pelvis. No bowel obstruction.
[2024-06-03 19:43] LABS: Absolute Basophils 0.1 K/uL (0-0.5); Absolute Lymphocytes (CBC) 0.8 K/uL (0.7-4.9); Absolute Monocytes 2.8 K/uL (0.1-1.3); Basophils % 0.4 % (0-1.3); Hematocrit 36.9 % (39.6-49.0); Hemoglobin 11.7 g/dL (13.6-17.9); Lymphocytes % 3.5 % (15.3-44.8); MCH 25.2 pg (27.0-35.0); MCHC 31.8 g/dL (32.0-36.0); MCV 79.1 fL (80-100); MPV 8.3 fL (7.6-11.3); Monocytes % 12.2 % (3.3-12.3); Neutrophils % 83.9 % (41.7-73.7); Platelets 131 thou/uL (152-406); RBC Red Blood Cell Count 4.67 M/uL (4.33-5.43)
[2024-06-03] MEDS ORDERED: FAMOTIDINE 20 MG/2 ML VIAL IV ONE (19:46)
[2024-06-03] MEDS ORDERED: NA CHLORIDE 0.9% 100 ML ONE ×2 (19:46→20:22)
[2024-06-03] MEDS ORDERED: PIPERACIL/TAZO 3.375 GM VIAL IV ONE (19:46)
[2024-06-03] MEDS ORDERED: NA CHLORIDE 0.9% 3,000 ML ONE (19:47)
[2024-06-03 19:50] LABS: Protime INR 1.33
[2024-06-03 19:59] LABS: Influenza A Ag Negative; Influenza B Ag Negative; SARS-CoV-2 Antigen Rapid Res Negative (Negative)
--- NOTE | 2024-06-03 20:02 | EDPHYS ---
Physician Documentation [facility] Name: Branden Adams Age: 84 yrs Sex: Male : 1940 Arrival Date: 06/03/2024 Time: 18:29 Bed 16 Private MD: ED Physician Rosendo Pollock HPI: 06/03 18:42 This 84 yrs old Black Male presents to ER via EMS with complaints of High Blood Sugar, ankit Blood Pressure Problem. 18:42 that was potentially precipitated by no particular event. ankit Historical: - Allergies: 18:42 Benadryl; me1 18:42 PENICILLINS; me1 18:42 Vancomycin; me1 - PMHx: 18:42 CHF; COLON CA; HTN; Pace maker; me1 - Immunization history:: Adult Immunizations up to date. - Infectious Disease History:: Denies. - Social history:: Smoking status: Patient denies any tobacco usage or history of. ROS: 18:46 Eyes: Negative for injury, pain, redness, and discharge, ENT: Negative for injury, ankit pain, and discharge, Neck: Negative for injury, pain, and swelling, Cardiovascular: Negative for chest pain, palpitations, and edema, Back: Negative for injury and pain, : Negative for injury, bleeding, discharge, and swelling, MS/Extremity: Negative for injury and deformity, Skin: Negative for injury, rash, and discoloration, Neuro: Negative for headache, weakness, numbness, tingling, and seizure, 18:46 Constitutional: Positive for body aches, chills, fatigue, fever, 18:46 Respiratory: Positive for cough, "sounds productive", 18:46 Abdomen/GI: Positive for abdominal pain, of the right lower quadrant and left lower quadrant, 18:46 Skin: Negative for erythema, Exam: 18:46 Constitutional: This is a well developed, well nourished patient who is awake, alert, ankit and in no acute distress. Head/Face: Normocephalic, atraumatic. Eyes: Pupils equal round and reactive to light, extra-ocular motions intact. Lids and lashes normal. Conjunctiva and sclera are non-icteric and not injected. Cornea within normal limits. Periorbital areas with no swelling, redness, or edema. ENT: Nares patent. No nasal discharge, no septal abnormalities noted. Tympanic membranes are normal and external auditory canals are clear. Oropharynx with no redness, swelling, or masses, exudates, or evidence of obstruction, uvula midline. Mucous membranes moist. Neck: Trachea midline, no thyromegaly or masses palpated, and no cervical lymphadenopathy. Supple, full range of motion without nuchal rigidity, or vertebral point tenderness. No Meningismus. Chest/axilla: Normal chest wall appearance and motion. Nontender with no deformity. No lesions are appreciated. Cardiovascular: Regular rate and rhythm with a normal S1 and S2. No gallops, murmurs, or rubs. Normal PMI, no JVD. No pulse deficits. Back: No spinal tenderness. No costovertebral tenderness. Full range of motion. Male : Normal genitalia with no discharge or lesions. Skin: Warm, dry with normal turgor. Normal color with no rashes, no lesions, and no evidence of cellulitis. Neuro: Awake and alert, GCS 15, oriented to person, place, time, and situation. Cranial nerves II-XII grossly intact. Motor strength 5/5 in all extremities. Sensory grossly intact. Cerebellar exam normal. Normal gait. Psych: Awake, alert, with orientation to person, place and time. Behavior, mood, and affect are within normal limits. 18:46 Respiratory: the patient does not display signs of respiratory distress, Respirations: normal, no acute changes, is not noted, Breath sounds: decreased breath sounds, that are mild, are located in both bases, are heard in the left posterior lower lobe and right posterior lower lobe, 18:46 Musculoskeletal/extremity: ROM: full active range of motion, full passive range of motion, Circulation is intact in all extremities. Sensation intact. Compartment Syndrome exam of affected extremity: is normal. 18:46 Skin: cellulitis, that is mild, on the lateral side of right heel and medial aspect of right heel, 20:19 ECG was reviewed by the Attending Physician. ankit Vital Signs: 18:36 BP 118 / 66; Pulse 82; Resp 18; Temp 99.1; Pulse Ox 95% on R/A; Weight 90.26 kg; Height me1 6 ft. 3 in. ; Pain 0/10; 19:00 BP 103 / 66; Pulse 80; Resp 18; Pulse Ox 98% ; me1 20:00 BP 106 / 68; Pulse 80; Resp 17; Pulse Ox 99% ; me1 21:00 BP 99 / 63; Pulse 80; Resp 17; Pulse Ox 96% ; me1 22:00 BP 109 / 71; Pulse 81; Resp 19; Temp 98.4; Pulse Ox 97% ; me1 18:36 Body Mass Index 24.87 (90.26 kg, 190.5 cm) me1 18:36 Pain Scale: Adult me1 [place] Coma Score: 19:59 Eye Response: spontaneous(4). Motor Response: obeys commands(6). Verbal Response: ankit oriented(5). Total: 15. MDM: 18:35 Medical Screening Exam initiated ankit 18:52 Differential diagnosis: viral Infection, bacterial infection, URI, bronchitis, ankit pneumonia hyperglycemia. Differential Diagnosis altered mental status, sepsis, flu. Data reviewed: vital signs, nurses notes, lab test result(s), EKG, radiologic studies, plain films. Consideration of Admission/Observation Patient was admitted/placed on observation. Escalation of care including admission/observation considered. I considered the following discharge prescriptions or medication management in the emergency department Medications were administered in the Emergency Department. See MAR. Independent interpretation of the following test(s) in the Emergency Department EKG: See my EKG interpretation above. Test considered but Not performed: Ultrasound no arterial doppler. Historians other than the Patient: EMS: ems well informed. Care significantly affected by the following chronic conditions: Congestive Heart Failure, Cancer, Chronic Kidney Disease. 06/03 18:39 Order name: Basic Metabolic Panel; Complete Time: 20:16 [facility] 06/03 18:39 Order name: CBC with Diff; Complete Time: 20:24 [facility] 06/03 18:39 Order name: LFT's; Complete Time: 20:16 [facility] 06/03 18:39 Order name: Magnesium; Complete Time: 20:16 [facility] 06/03 18:39 Order name: NT PRO-BNP; Complete Time: 20:16 [facility] 06/03 18:39 Order name: PT-INR; Complete Time: 19:54 [facility] 06/03 18:39 Order name: Troponin HS; Complete Time: 20:16 [facility] 06/03 18:39 Order name: Urinalysis w/ reflexes; Complete Time: 20:24 [facility] 06/03 18:39 Order name: COVID-19 Ag + Flu A+B Ag; Complete Time: 20:02 [facility] 06/03 18:39 Order name: Blood Culture Adult (2) [facility] 06/03 18:39 Order name: Lactate w/ 2H reflex if indic.; Complete Time: 20:02 [facility] 06/03 20:05 Order name: Urine Culture [facility] 06/03 20:12 Order name: High Sensitivity-CRP [facility] 06/03 20:13 Order name: Osmolality, Serum [facility] 06/03 20:13 Order name: Urine Osmolality [facility] 06/03 20:13 Order name: Urine Sodium Random [facility] 06/03 20:21 Order name: CBC Smear Scan; Complete Time: 20:24 [facility] 06/03 21:35 Order name: CBC with Automated Diff [facility] 06/03 21:35 Order name: CBC with Automated Diff [facility] 06/03 21:35 Order name: Comprehensive Metabolic Panel [facility] 06/03 21:35 Order name: Comprehensive Metabolic Panel [facility] 06/03 18:39 Order name: XRAY Chest (1 view); Complete Time: 19:54 [facility] 06/03 18:39 Order name: Foot Right 3 View XRAY; Complete Time: 19:54 [facility] 06/03 18:39 Order name: CT Chest Abdomen Pelvis W/O Contrast; Complete Time: 19:54 [facility] 06/03 18:39 Order name: EKG; Complete Time: 18:40 [facility] 06/03 18:39 Order name: Cardiac monitoring; Complete Time: 20:34 [facility] 06/03 18:39 Order name: EKG - Nurse/Tech; Complete Time: 20:15 [facility] 06/03 18:39 Order name: IV Saline Lock; Complete Time: 19:49 [facility] 06/03 18:39 Order name: Labs collected and sent; Complete Time: 19:49 [facility] 06/03 18:39 Order name: O2 Per Protocol; Complete Time: 19:04 [facility] 06/03 18:39 Order name: O2 Sat Monitoring; Complete Time: 19:04 [facility] 06/03 18:39 Order name: Wound dressing; Complete Time: 20:33 [facility] EC:19 Rate is 83 beats/min. Rhythm is regular. QRS Stanton is Normal. IA interval is normal. QRS ankit interval is normal. QT interval is normal. No Q waves. T waves are Normal. No ST changes noted. Interpreted by me. Reviewed by me. Administered Medications: 20:04 Drug: NS 0.9% IV (30 ml/kg) 30 ml/kg IV at bolus once; Sepsis Protocol; to be given as me1 a bolus over 90 minutes Route: IV; Rate: bolus; Site: left forearm; 22:03 Follow up: Response: No adverse reaction; IV Status: Completed infusion; IV Intake: me1 2707ml 20:04 CANCELLED (Duplicate Order): piperacillin-tazobactam3.375 grams IVPB once over 60 mins; ankit (mix in NS 100 mL) 20:05 Drug: Famotidine IVP 20 mg IVP once; dilute with 10 mL 0.9% NaCl; give over 2 minutes me1 Route: IVP; Site: left forearm; 20:10 Follow up: Response: No adverse reaction me1 20:33 Drug: Meropenem IV 1 grams IV at per protocol once; (mix in NS 100 mL) Route: IV; Rate: me1 per protocol; Site: left forearm; 21:04 Follow up: Response: No adverse reaction; IV Status: Completed infusion; IV Intake: me1 100ml Disposition Summary: 06/03/24 20:01 Hospitalization Ordered Notes: Hospitalization Status: Inpatient Admission ankit Provider: Aster Lane cha Location: Telemetry/[facility] (Inpatient) ankit Condition: Fair ankit Problem: new ankit Symptoms: have improved ankit Bed/Room Type: Standard [facility] Room Assignment: 405(06/03/24 21:47) [facility] Diagnosis - Elevated white blood cell count ankit - Weakness ankit - Pain in right knee ankit - Fever, unspecified ankit - Pneumonia due to other specified bacteria ankit - Other soft tissue disorders related to use, overuse and pressure multiple sites - ankit RIGHT HEEL - UTI/ Urinary tract infection, site not specified ankit - Hypo-osmolality and hyponatremia ankit - Dysuria - CYSTITIS, WTH HEMATURIA(06/03/24 20:25) ankit Forms: - Medication Reconciliation Form ankit - SBAR form ankit - Leadership Thank You Letter ankit Signatures: Dispatcher [employer] Rosendo Lenz MD MD cha Eddleman, Michelle, RN RN mn1 [facility] Corrections: (The following items were deleted from the chart) 18:40 18:40 BASIC METABOLIC PANEL+C.LAB.BRZ ordered. EDMS EDMS 18:40 18:40 CBC+H.LAB.BRZ ordered. EDMS EDMS 18:40 18:40 HEPATIC FUNCTION+C.LAB.BRZ ordered. EDMS EDMS 18:40 18:40 MAGNESIUM+C.LAB.BRZ ordered. EDMS EDMS 18:40 18:40 PROBNP+C.LAB.BRZ ordered. EDMS EDMS 18:40 18:40 PROTIME (+INR)+COAG.LAB.BRZ ordered. EDMS EDMS 18:40 18:40 Troponin High Sensitivity+C.LAB.BRZ ordered. EDMS EDMS 18:40 18:40 Urinalysis+U.LAB.BRZ ordered. EDMS EDMS 18:40 18:40 COVID-19 Ag + Flu A+B Ag+I.LAB.BRZ ordered. EDMS EDMS 18:40 18:40 BLOOD CULTURE*+BA.LAB.BRZ ordered. EDMS EDMS 18:40 18:40 LACTATE+C.LAB.BRZ ordered. EDMS EDMS 20:04 18:39 Piperacillin-Tazobactam IVPB 3.375 grams IVPB once over 60 mins; (mix in NS 100 ankit mL) ordered. ankit 20:13 18:40 C-REACTIVE PROTEIN+C.LAB.BRZ ordered. EDMS EDMS 20:13 20:13 OSMOLALITY, SERUM+SC.LAB.BRZ ordered. EDMS EDMS 20:13 20:13 Osmolality, Urine ordered. EDMS EDMS 20:13 20:13 URINE SODIUM RANDOM+CHEM UR.LAB.BRZ ordered. EDMS EDMS 20:25 20:09 Dysuria ankit ankit 21:47 20:01 ankit kmf
--- NOTE | 2024-06-03 20:02 | ER ---
Nurse's Notes [facility] Name: Branden Adams Age: 84 yrs Sex: Male : 1940 Arrival Date: 06/03/2024 Time: 18:29 Bed 16 Private MD: Diagnosis: Elevated white blood cell count;Weakness;Pain in right knee;Fever, unspecified;Pneumonia due to other specified bacteria;Other soft tissue disorders related to use, overuse and pressure multiple sites-RIGHT HEEL;Dysuria-CYSTITIS, WTH HEMATURIA;UTI/ Urinary tract infection, site not specified;Hypo-osmolality and hyponatremia Presentation: 06/03 18:36 Chief complaint: EMS states: toned out for low bp and high blood sugar to Ms. Malcolm's co1 Place. Staff reports he doesn't seem like himself. At baseline he is A\T\Ox2. Febrile at 101.4, given tylenol 500 mg PO. 20g to LFA established and patient rec'd about 550 ml of NS. Patient c/o discomfort with urination and that he has a wound to right heel. Coronavirus screen: Vaccine status: Patient reports receiving the 2nd dose of the covid vaccine. Ebola Screen: No symptoms or risks identified at this time. Initial Sepsis Screen: Does the patient meet any 2 criteria? No. Patient's initial sepsis screen is negative. Does the patient have a suspected source of infection? No. Patient's initial sepsis screen is negative. Risk Assessment: Do you want to hurt yourself or someone else? Patient reports no desire to harm self or others. Onset of symptoms is unknown. 18:36 Method Of Arrival: EMS: [place] [id number] 18:36 Acuity: JAD 3 co1 Triage Assessment: 18:42 General: Appears in no apparent distress. well groomed, well developed, well nourished, me1 Behavior is calm, cooperative, appropriate for age, Reports fever for 0-12 hours. Pain: Denies pain. EENT: No signs and/or symptoms were reported regarding the EENT system. Neuro: Level of Consciousness is awake, alert, obeys commands, Oriented to person, situation. Cardiovascular: Patient's skin is warm and dry. Respiratory: Airway is patent Respiratory effort is even, unlabored, Respiratory pattern is regular, symmetrical. GI: No signs and/or symptoms were reported involving the gastrointestinal system. : No signs and/or symptoms were reported regarding the genitourinary system. Derm: Skin with poor turgor Skin is pink, warm \T\ dry. Wound noted heel of right foot. Musculoskeletal: No signs and/or symptoms reported regarding the musculoskeletal system. Historical: - Allergies: 18:42 Benadryl; me1 18:42 PENICILLINS; me1 18:42 Vancomycin; me1 - PMHx: 18:42 CHF; COLON CA; HTN; Pace maker; me1 - Immunization history:: Adult Immunizations up to date. - Infectious Disease History:: Denies. - Social history:: Smoking status: Patient denies any tobacco usage or history of. Screenin:45 [facility] ED Fall Risk Assessment (Adult) History of falling in the last 3 months, me1 including since admission No falls in past 3 months (0 pts) Confusion or Disorientation Yes (5 pts) Intoxicated or Sedated No (0 pts) Impaired Gait Yes (1 pt) Mobility Assist Device Used Yes (1 pt) Altered Elimination No (0 pt) Score/Fall Risk Level 0 - 2 = Low Risk Maintained a safe environment, Provided non-skid footwear, Hourly rounding (assess needs \T\ fall precautionary measures) done. Abuse screen: Denies threats or abuse. Nutritional screening: No deficits noted. Tuberculosis screening: No symptoms or risk factors identified. Assessment: 18:45 General: See triage assessment. me1 22:52 Reassessment: Called FERNANDO Johnson on 4th floor to add to report that patient has a wound me1 to right heel and a stg 2 to right buttock. Vital Signs: 18:36 BP 118 / 66; Pulse 82; Resp 18; Temp 99.1; Pulse Ox 95% on R/A; Weight 90.26 kg; Height me1 6 ft. 3 in. ; Pain 0/10; 19:00 BP 103 / 66; Pulse 80; Resp 18; Pulse Ox 98% ; me1 20:00 BP 106 / 68; Pulse 80; Resp 17; Pulse Ox 99% ; me1 21:00 BP 99 / 63; Pulse 80; Resp 17; Pulse Ox 96% ; me1 22:00 BP 109 / 71; Pulse 81; Resp 19; Temp 98.4; Pulse Ox 97% ; me1 18:36 Body Mass Index 24.87 (90.26 kg, 190.5 cm) me1 18:36 Pain Scale: Adult me1 [place] Coma Score: 19:59 Eye Response: spontaneous(4). Motor Response: obeys commands(6). Verbal Response: ankit oriented(5). Total: 15. ED Course: 18:34 Patient arrived in ED. me1 18:35 Rosendo Pollock MD is Attending Physician. ankit 18:42 Triage completed. me1 18:42 Arm band placed on Patient placed in an exam room. me1 18:45 Patient has correct armband on for positive identification. Bed in low position. Call me1 light in reach. Side rails up X2. Provided Education on: POC. Verbalized understanding. Client placed on continuous cardiac and pulse oximetry monitoring. NIBP monitoring applied. hunter on. Pulse ox on. NIBP on. 18:45 No provider procedures requiring assistance completed. Maintain EMS IV. Dressing me1 intact. Good blood return noted. Site clean \T\ dry. Gauge \T\ site: 20g LFA. Flushed with 10 mL NS. 18:59 Karen Benitez, RN is Primary Nurse. me1 19:07 CT Chest Abdomen Pelvis W/O Contrast In Process Unspecified. EDMS 19:13 XRAY Chest (1 view) In Process Unspecified. EDMS 19:13 Foot Right 3 View XRAY In Process Unspecified. EDMS 19:30 Inserted saline lock: 22 gauge in left hand, using aseptic technique. Blood collected. mm11 Flushed with 10 mL NS. 19:49 Lactate w/ 2H reflex if indic. Sent. mm11 19:49 Blood Culture Adult (2) Sent. mm11 19:49 Basic Metabolic Panel Sent. mm11 19:49 LFT's Sent. mm11 19:50 Magnesium Sent. mm11 19:50 NT PRO-BNP Sent. mm11 19:50 PT-INR Sent. mm11 19:50 Troponin HS Sent. mm11 19:50 COVID-19 Ag + Flu A+B Ag Sent. mm11 20:[address] MD is Hospitalizing Provider. nakit 20:14 Initial lab(s) drawn, by ED staff, sent to lab. First set of blood cultures drawn [place] [facility] [place], Second set of blood cultures drawn by ED staff, Urine collected: clean catch specimen, cloudy, pool colored. 20:16 EKG done. 20:33 Urine Culture Sent. me1 22:10 Patient admitted, IV remains in place. me1 Administered Medications: 20:04 Drug: NS 0.9% IV (30 ml/kg) 30 ml/kg IV at bolus once; Sepsis Protocol; to be given as me1 a bolus over 90 minutes Route: IV; Rate: bolus; Site: left forearm; 22:03 Follow up: Response: No adverse reaction; IV Status: Completed infusion; IV Intake: me1 2707ml 20:04 CANCELLED (Duplicate Order): piperacillin-tazobactam3.375 grams IVPB once over 60 mins; [facility] (mix in NS 100 mL) 20:05 Drug: Famotidine IVP 20 mg IVP once; dilute with 10 mL 0.9% NaCl; give over 2 minutes me1 Route: IVP; Site: left forearm; 20:10 Follow up: Response: No adverse reaction co1 20:33 Drug: Meropenem IV 1 grams IV at per protocol once; (mix in NS 100 mL) Route: IV; Rate: me1 per protocol; Site: left forearm; 21:04 Follow up: Response: No adverse reaction; IV Status: Completed infusion; IV Intake: me1 100ml Medication: 18:45 VIS not applicable for this client. me1 Intake: 21:04 IV: 100ml; Total: 100ml. me1 22:03 IV: 2707ml; Total: 2807ml. me1 Outcome: 20:01 Decision to Hospitalize by Provider. ankit 22:10 Admitted to Tele accompanied by [facility], via stretcher, room 405, with chart, Report me1 called to faxed, receipt confirmed with Nichol 22:10 Condition: stable 22:10 Instructed on the need for admit, 22:51 Patient left the ED. co1 Signatures: Dispatcher [employer] EDRosendo Hinson MD MD cha Eddleman, Michelle, FERNANDO RN 1 Velma Chavez monty mm11 Corrections: (The following items were deleted from the chart) 20:57 19:41 Urine 2000, (Voided), output 1999, me1 me1
[2024-06-03 20:08] LABS: Albumin 2.2 g/dL (3.4-5.0); Albumin/Globulin Ratio 0.5 (1.1-1.8); Anion Gap 11.8 mEq/L (5.0-15.0); Bilirubin Direct 0.2 mg/dL (0-0.2); Bilirubin Indirect, Calculated 0.4 mg/dL (0.2-0.8); Bilirubin Total 0.6 mg/dL (0.2-1.0); Globulin 4.4 g/dL (2.3-3.5); Potassium 4.8 mEq/L (3.5-5.1); Protein, Total 6.6 g/dL (6.4-8.2); Troponin High Sensitivity 42.6 pg/mL (<58.9)
[2024-06-03 20:12] LABS: Specific Gravity 1.025 (1.005-1.030); Sqamous Epithelial <5 /HPF (None Seen); Urine Bacteria 20-50 /HPF (<20); Urine Bilirubin NEGATIVE (Negative); Urine Blood 1+ (Negative); Urine Clarity Extremely Turbid (Clear); Urine Color Light-Yellow (Yellow); Urine Crystals Unidentified Few /HPF (None Seen); Urine Culture Reflex Order REFLEXED; Urine Glucose 4+ (Over) (Negative); Urine Ketones 1+ (Negative); Urine Microscopic Reflex YN ORDER UMIC; Urine Mucus Slight /HPF (None Seen); Urine Nitrite NEGATIVE (Negative); Urine Protein 1+ (Negative); Urine RBC 21-50 /HPF (None Seen); Urine Urobilinogen Normal (Normal); Urine WBC >50 /HPF (<5); Urine WBC Clump Few /HPF (None Seen); Urine Yeast (Budding) Moderate /HPF (None Seen); Urine pH 5.5 (5.0-7.0)
[2024-06-03 20:20] LABS: Anisocytosis 3+; Blood Morphology Comment NOTED (NOT SEEN); Platelet Estimate DECR; White Blood Cell Scan OK (OK)
[2024-06-03 20:21] LABS: Poikilocytosis 1+; Polychromasia 1+
[2024-06-03] MEDS ORDERED: Meropenem 1000 MG/VIAL IV ONE (20:22)
--- NOTE | 2024-06-03 21:28 | P.HP ---
Certification for Inpatient Patient admitted to: Inpatient With expected LOS: >2 Midnights Practitioner: I am a practitioner with admitting privileges, knowledge of patient current condition, hospital course, and medical plan of care. Services: Services provided to patient in accordance with Admission requirements found in Title 42 Section 412.3 of the Code of Federal Regulations Patient History Date of Service: 06/03/24 Reason for admission: sepsis History of Present Illness: 84-year-old male presented to ER with complaints of high blood pressure severe. He was noted to be hypotensive. Patient was noted to have abnormal urine as well as chest x-ray. Concern for UTI and pneumonia. He has a past history of hypertension, heart failure, colon cancer pacemaker he was recently admitted in the hospital for generalized weakness as well as having a recent admission for GI bleed. Also recently found to have a DVT in the right arm. Allergies diphenhydramine [From Benadryl] Allergy (Verified 04/24/24 03:53) Hives/Rash Penicillins Allergy (Verified 04/24/24 02:36) Hives/Rash vancomycin Allergy (Verified 04/24/24 02:36) Hives Home Medications: Acetaminophen 650 mg PO Q6H PRN 04/24/24 Atorvastatin Calcium 20 mg PO BEDTIME 04/24/24 Brimonidine/Dorzolamide/Pf [Brimonidine 0.15%-Dorzolam 2%] 1 drop OP BID 04/24 Empagliflozin [Jardiance] 10 mg PO DAILY 04/24/24 Ferrous Sulfate 325 mg PO DAILY 04/24/24 Gabapentin 300 mg PO BID 04/24/24 Insulin Glargine,Hum.rec.anlog [Lantus] 10 unit SQ DAILY 04/24/24 Latanoprost Ophth [Xalatan 0.005%*] 1 drop EACH EYE BEDTIME 04/24/24 Metoprolol Tartrate 50 mg PO DAILY 04/24/24 Omeprazole 20 mg PO DAILY 04/24/24 Prednisolone Acetate [Pred Forte] 1 drop EACH EYE DAILY 04/24/24 Rivaroxaban [Xarelto] 20 mg PO BEDTIME 04/24/24 Spironolactone [Aldactone] 50 mg PO DAILY 04/24/24 Tamsulosin [Flomax] 0.4 mg PO DAILY 04/24/24 Torsemide [Demadex] 20 mg PO DAILY 04/24/24 - Past Medical/Surgical History Diabetic: Yes -: CHF -: HTN -: Colon Cancer -: Pacemaker - Social History Alcohol use: No CD- Drugs: No Caffeine use: Yes Review of Systems 10-point ROS is otherwise unremarkable Physical Examination - Physical Exam General: In no apparent distress HEENT: Atraumatic, Normocephalic Respiratory: Clear to auscultation bilaterally, Normal air movement Cardiovascular: Regular rate/rhythm, Normal S1 S2 Integumentary: No rashes - Studies Laboratory Data (last 24 hrs) 06/03/24 06/03/24 06/03/24 19:30 19:30 19:30 WBC 22.70 H Hgb 11.7 L Hct 36.9 L Plt Count 131 L PT 15.0 H INR 1.33 Sodium 122 L Potassium 4.8 BUN 32 H Creatinine 1.22 Glucose 208 H Magnesium 2.0 Total Bilirubin 0.6 AST 24 ALT 22 Alkaline Phosphatase 87 Assessment and Plan - Problems (Diagnosis) (1) Sepsis Current Visit: Yes Status: Acute (2) UTI (urinary tract infection) Current Visit: Yes Status: Acute (3) Pneumonia Current Visit: Yes Status: Acute - Plan 84-year-old male presented to ER with complaints of high blood sugar. He was noted to be hypotensive. P. He has a past history of hypertension, heart failure, colon cancer pacemaker he was recently admitted in the hospital for generalized weakness as well as having a recent admission for GI bleed. Also recently found to have a DVT in the right arm. sepsis PNA UTI hypotension DM CHF hx of ppm hx of colon ca plan: 1. admit to med surg with telmetry 2. followup cultures 3. gentle hydration 4. check echo 5. iv rocephin, azithromycin, fluconazole 6. await home med rec 7. fsbs, ssi - Advance Directives Does patient have a Living Will: No Does patient have a Durable POA for Healthcare: No
[2024-06-03] MEDS ORDERED: GLUCAGON 1 MG/VIAL IM PRN (21:30)
[2024-06-03] MEDS ORDERED: D10W 125 ML IV PRN (21:30)
[2024-06-03] MEDS: AZITHROMYCIN 1 GM PACKET PO ONE (22:00)
[2024-06-03] MEDS: NA CHLORIDE 0.9% 1,000 ML IV SCH (23:28)
[2024-06-03] MEDS: FLUCONAZOLE 100 MG TAB PO SCH (23:33)
[2024-06-04] MEDS: HEPARIN 5000 UNIT/ML 1 ML VIAL SQ SCH (00:38)
[2024-06-04] MEDS: INSULIN REGULAR (HUMAN) 100 UNIT/ML SQ SCH (07:30)
[2024-06-04] MEDS: CEFTRIAXONE 1,000 MG in NA CHLORIDE 0.9% 50 ML IVPB SCH (07:50)
[2024-06-04 09:35] LABS: Absolute Eosinophils 0.1 K/uL (0-0.5); Absolute Lymphocytes (CBC) 0.9 K/uL (0.7-4.9); Absolute Monocytes 2.3 K/uL (0.1-1.3); Basophils % 0.2 % (0-1.3); Eosinophils % 0.5 % (0-4.4); Hematocrit 37.2 % (39.6-49.0); Hemoglobin 11.7 g/dL (13.6-17.9); Lymphocytes % 4.4 % (15.3-44.8); MCH 24.7 pg (27.0-35.0); MCHC 31.4 g/dL (32.0-36.0); MCV 78.9 fL (80-100); MPV 8.2 fL (7.6-11.3); Monocytes % 10.7 % (3.3-12.3); Neutrophils % 84.2 % (41.7-73.7); Nucleated RBC Absolute Count 0.1 (0-0); Nucleated Red Blood Cells % 0.2 % (0-0); Platelets 120 thou/uL (152-406); RBC Red Blood Cell Count 4.71 M/uL (4.33-5.43); Red Cell Distribution Width 25.8 % (12.1-15.2)
[2024-06-04 10:06] LABS: Albumin/Globulin Ratio 0.4 (1.1-1.8); Anion Gap 15.5 mEq/L (5.0-15.0); Bilirubin Total 0.4 mg/dL (0.2-1.0); Globulin 4.5 g/dL (2.3-3.5); Potassium 4.5 mEq/L (3.5-5.1); Protein, Total 6.5 g/dL (6.4-8.2)
--- NOTE | 2024-06-04 12:18 | EKG ---
Test Date: 2024-06-03 Test Time: 20:14:19 Comb Setter: MEGHANN MEASUREMENT RESULTS: Intervals: Rate: 83 NH: QRSD: 152 QT: 428 QTc: 502 [place]: P: NH: QRS: 268 T: 101 INTERPRETIVE STATEMENTS: Ventricular-paced rhythm with occasional premature ventricular complexes Biventricular pacemaker detected Abnormal ECG Compared to ECG 04/23/2024 19:36:43 Ventricular premature complex(es) now present Atrial-sensed ventricular-paced complex(es) or rhythm no longer present Electronically Signed On 06-04-24 12:17:43 CDT by Delta Null
[2024-06-04] MEDS: JUVEN PACKET PO SCH (21:00)
[2024-06-04] MEDS: HYDROCODONE/APAP 5/325 MG TAB PO PRN (21:54)
[2024-06-04 23:50] VITALS: BMI 27.5
--- NOTE | 2024-06-05 11:44 | CON ---
Reason For Consultation: This is an 84-year-old male I was consulted for urosepsis secondary to Kleb siella pneumoniae. The patient is currently being treated with Rocephin. History Of Present Illness: The patient was initially admitted to hospital on June 03, coming in with complaints of high blood pressure. The patient was also found to have abnormal urinalysis and c hest x-ray, which showed low lung volumes, after which CT chest, abdomen and pelvis was performed, wh ich showed mild nodularity in the lower lungs, bilaterally could reflect mild pneumonia or pneumoniti s. The patient denies any headache, nausea, vomiting, chest pain, abdominal pain, constipation, or d iarrhea. Past Medical History: As per HPI. Social History: Nonsmoker. Nondrinker. Family History: Noncontributory. Medications: Fluconazole, Rocephin. See MARs for other medications. Allergies: DIPHENHYDRAMINE, PENICILLIN, AND VANCOMYCIN. Review of Systems: Ten-point review was performed. Physical Examination: General: This is an 84-year-old male, lying in bed, not in any acute cardiopulmonary distress. Vital Signs: Temperature 97.7, pulse 77, respiration 18, blood pressure 138/80. HEENT: Unremarkable. Neck: Supple. Lungs: Basal crackles. Heart: S1, S2. Regular. Abdomen: Soft, nontender. Bowel sounds present. Extremities: No edema. Laboratory Data: WBC 21,000, hemoglobin 11.7, platelets are 120. Chemistry shows BUN of 25, creatin ine 0.9. Albumin level is 2. Assessment/plan: 1. 84-year-old male with significant medical history of diabetes mellitus and hypertension, coming in with urosepsis and pneumonitis. Urine cultures are growing Klebsiella pneumoniae more than 100,000 colonies, being treated with Rocephin. 2. Pyuria. 3. Hematuria. 4. Funguria, being treated with fluconazole. Continue Diflucan for 7 days. Continue Rocephin for 2 weeks. Can be switched to oral antibiotic on discharge with Levaquin. We will follow the patient as needed. NF/MODL Voice ID: [id number] Report ID: [id number]
[2024-06-05 12:24] VITALS: O2SAT 97
[2024-06-06 06:32] LABS: Absolute Basophils 0.1 K/uL (0-0.5); Absolute Eosinophils 0.3 K/uL (0-0.5); Absolute Lymphocytes (CBC) 0.5 K/uL (0.7-4.9); Absolute Monocytes 0.8 K/uL (0.1-1.3); Basophils % 1.1 % (0-1.3); Hematocrit 36.4 % (39.6-49.0); Hemoglobin 11.5 g/dL (13.6-17.9); Lymphocytes % 6.2 % (15.3-44.8); MCH 25.5 pg (27.0-35.0); MCHC 31.6 g/dL (32.0-36.0); MCV 80.8 fL (80-100); MPV 8.4 fL (7.6-11.3); Monocytes % 9.9 % (3.3-12.3); Neutrophils % 78.8 % (41.7-73.7); Platelets 142 thou/uL (152-406); RBC Red Blood Cell Count 4.51 M/uL (4.33-5.43); Red Cell Distribution Width 25.4 % (12.1-15.2)
[2024-06-06 06:47] LABS: Albumin/Globulin Ratio 0.4 (1.1-1.8); Anion Gap 9.2 mEq/L (5.0-15.0); Bilirubin Total 0.2 mg/dL (0.2-1.0); Globulin 4.5 g/dL (2.3-3.5); Potassium 4.2 mEq/L (3.5-5.1); Protein, Total 6.5 g/dL (6.4-8.2)
[2024-06-06 08:24] VITALS: TEMP 97.7
[2024-06-06 12:01] VITALS: BP 133/76
--- NOTE | 2024-06-13 13:20 | P.PN ---
Date of Service: 06/04/24 Subjective patient was given IV fluids and antibiotics. Continue with treating clinical symptoms. Physical Examination - Physical Exam Vitals: Reviewed General: In no apparent distress HEENT: Atraumatic, Normocephalic Respiratory: Clear to auscultation bilaterally, Normal air movement Cardiovascular: Regular rate/rhythm, Normal S1 S2 Integumentary: No rashes Assessment and Plan - Problems (Diagnosis) (1) Sepsis Current Visit: Yes Status: Acute (2) UTI (urinary tract infection) Current Visit: Yes Status: Acute (3) Pneumonia Current Visit: Yes Status: Acute - Plan 84-year-old male presented to ER with complaints of high blood sugar. He was noted to be hypotensive. P. He has a past history of hypertension, heart failure, colon cancer pacemaker he was recently admitted in the hospital for generalized weakness as well as having a recent admission for GI bleed. Also recently found to have a DVT in the right arm. Assessment: 1. Sepsis secondary to pneumonia /UTI 2. Hypotension 3. DM 4. CHF; hx of ppm 5. History of colon ca Plan: 1. Continue with IV antibiotics 2. Awaiting sputum and blood culture 3. Repeat chest x-ray 4. Will proceed with CT scan of the chest if pneumonia is not improved 5. Respiratory isolation is not needed 6. Continue with nebs as needed 7. O2 per protocol 8. Continue with gentle hydration 9. Repeat labs including CBC and renal function in a.m. 10. Strict blood sugar controlled 11. Continue with diuresing 12. GI and DVT prophylaxis - Advance Directives Does patient have a Living Will: No Does patient have a Durable POA for Healthcare: No
--- NOTE | 2024-06-13 13:21 | P.PN ---
Date of Service: 06/05/24 Subjective patient was started on antibiotics. Patient is clinically doing much better. Clinical symptoms have improved. Blood sugars are stable. Physical Examination - Physical Exam Vitals: Reviewed General: In no apparent distress HEENT: Within normal limits Respiratory: Clear to auscultation bilaterally, Normal air movement Cardiovascular: Regular rate/rhythm, Normal S1 S2 Abdomen: Soft/nontender nondistended bowel sounds positive Extremities: No clubbing/cyanosis / edema Integumentary: No rashes Assessment and Plan - Problems (Diagnosis) (1) Sepsis Current Visit: Yes Status: Acute (2) UTI (urinary tract infection) Current Visit: Yes Status: Acute (3) Pneumonia Current Visit: Yes Status: Acute - Plan 84-year-old male presented to ER with complaints of high blood sugar. He was noted to be hypotensive. P. He has a past history of hypertension, heart failure, colon cancer pacemaker he was recently admitted in the hospital for generalized weakness as well as having a recent admission for GI bleed. Also recently found to have a DVT in the right arm. Assessment: 1. Sepsis secondary to pneumonia /UTI 2. Hypotension 3. DM 4. CHF; hx of ppm 5. History of colon ca Plan: 1. Continue with IV antibiotics 2. Awaiting sputum and blood culture 3. Repeat chest x-ray 4. Will proceed with CT scan of the chest if pneumonia is not improved 5. Respiratory isolation is not needed 6. Continue with nebs as needed 7. O2 per protocol 8. Continue with gentle hydration 9. Repeat labs including CBC and renal function in a.m. 10. Strict blood sugar controlled 11. Continue with diuresing 12. GI and DVT prophylaxis - Advance Directives Does patient have a Living Will: No Does patient have a Durable POA for Healthcare: No
--- NOTE | 2024-06-13 13:23 | P.DS ---
Discharge Date: 06/06/24 Disposition: TRANSFER TO [facility] Discharge Condition: GOOD Reason for Admission: sepsis Brief History of Present Illness: 84-year-old male presented to ER with complaints of high blood pressure severe. He was noted to be hypotensive. Patient was noted to have abnormal urine as well as chest x-ray. Concern for UTI and pneumonia. He has a past history of hypertension, heart failure, colon cancer pacemaker he was recently admitted in the hospital for generalized weakness as well as having a recent admission for GI bleed. Also recently found to have a DVT in the right arm. Hospital Course: Patient has done well during hospital stay. Clinically, patient is much better. At this time, patient is stable for discharge home. Continue with antibiotics. Patient will follow-up with primary care provider. Vital Signs/Physical Exam: Temp Pulse Resp BP Pulse Ox 97.7 F 83 18 133/76 99 06/06/24 12:00 06/06/24 12:00 06/06/24 12:00 06/06/24 12:00 06/06/24 12:00 General: Alert, In no apparent distress, Oriented x3 Laboratory Data at Discharge: WBC 7.60 thou/uL (4.3-10.9) 06/06/24 06:10 Hgb 11.5 g/dL (13.6-17.9) L 06/06/24 06:10 Hct 36.4 % (39.6-49.0) L 06/06/24 06:10 Plt Count 142 thou/uL (152-406) L 06/06/24 06:10 PT 15.0 SECONDS (10-13.0) H 06/03/24 19:30 INR 1.33 06/03/24 19:30 Sodium 134 mEq/L (136-145) L 06/06/24 06:10 Potassium 4.2 mEq/L (3.5-5.1) 06/06/24 06:10 BUN 29 mg/dL (7-18) H 06/06/24 06:10 Creatinine 0.73 mg/dL (0.70-1.30) 06/06/24 06:10 Glucose 158 mg/dL (74-106) H 06/06/24 06:10 Magnesium 2.0 mg/dL (1.6-2.4) 06/06/24 06:10 Total Bilirubin 0.2 mg/dL (0.2-1.0) 06/06/24 06:10 AST 18 U/L (15-37) 06/06/24 06:10 ALT 17 U/L (16-61) 06/06/24 06:10 Alkaline Phosphatase 86 U/L (45-117) 06/06/24 06:10 Home Medications: Acetaminophen 650 mg PO Q6H PRN 04/24/24 Empagliflozin [Jardiance] 10 mg PO DAILY 04/24/24 Ferrous Sulfate 325 mg PO BID 04/24/24 Gabapentin 300 mg PO TID 04/24/24 Insulin Glargine,Hum.rec.anlog [Lantus] 17 unit SQ BEDTIME 04/24/24 Tamsulosin [Flomax*] 0.4 mg PO BID 04/24/24 Allopurinol 100 mg PO DAILY 06/04/24 Ascorbic Acid 1 tab PO DAILY 06/04/24 Atorvastatin Calcium 1 tab PO BEDTIME 06/04/24 Furosemide [Lasix] 1 tab PO SEECOM 06/04/24 Insulin Lispro See Protocol SQ SEECOM 06/04/24 Lidocaine 4% Patch [Lidoderm 5% Patch*] 1 appl TOP BEDTIME 06/04/24 Pantoprazole [Protonix Tab*] 1 tab PO DAILY 06/04/24 Zinc Gluconate [Zinc] 1 tab PO BEDTIME 06/04/24 Cefdinir [Cefdinir*] 300 mg PO BID #14 cap 06/06/24 Ensure Max Protein 330 ml PO TID #90 can 06/06/24 Hydrocodone 5/APAP 325 [Jones 5/325*] 1 tab PO Q4H PRN #30 tab 06/06/24 Kj [Kj*] 1 pkt PO BID #60 packet 06/06/24 New Medications: Cefdinir [Cefdinir*] 300 mg PO BID #14 cap Ensure Max Protein 330 ml PO TID #90 can Kj [Kj*] 1 pkt PO BID #60 packet Hydrocodone 5/APAP 325 [Jones 5/325*] 1 tab PO Q4H PRN #30 tab PRN Reason: Pain Scale 5-7 (Moderate) Physician Discharge Instructions: -DC IV and DC to senior care -Follow-up with PCP in 1 to 2 weeks -Please call Dr. Ruiz at [phone] if any questions regarding hospital stay -Please call nursing station at [phone] if any nursing or medication questions -Return to the emergency room if symptoms worsen Diet: AHA Activity: Fall precautions Followup: OOTCANDI [Primary Care Provider] - Time spent managing pt's care (in minutes): 35
== END 2024-06-06 13:55 | DRG 871 ==
LOC: ER 18:29 → ERHOLD 21:30 → 4TH 22:10
PROVIDERS: ADMIT Internal Medicine; ATTEND Hospitalist
DX: A41.9 Sepsis, unspecified organism (principal); J18.9 Pneumonia, unspecified organism; E87.1 Hypo-osmolality and hyponatremia; N30.01 Acute cystitis with hematuria; L89.329 Pressure ulcer of left buttock, unspecified stage; I11.0 Hypertensive heart disease with heart failure; I50.9 Heart failure, unspecified; L89.619 Pressure ulcer of right heel, unspecified stage; E11.65 Type 2 diabetes mellitus with hyperglycemia; I95.9 Hypotension, unspecified; R53.1 Weakness; R82.81 Pyuria; B96.1 Klebsiella pneumoniae [K. pneumoniae] as the cause of diseases classified elsewhere; Z95.0 Presence of cardiac pacemaker; Z85.038 Personal history of other malignant neoplasm of large intestine; Z11.52 Encounter for screening for COVID-19
CPT/HCPCS: 36415; 71045; 71250; 74176; 80048; 80053; 80076; 81001; 82947; 83605; 83735; 83880; 83930; 83935; 84145; 84300; 84484; 85025; 85610; 86141; 87040; 87077; 87086; 87088; 87186; 87428; 93005; 96365; 96375; 99285; J0696; J1644; J1815; J2185; J2543; J7030

== ENCOUNTER 2024-06-14 18:46 | Inpatient (IN) | payer OTHER ==
[2024-06-14] MEDS ORDERED: Meropenem 1000 MG/VIAL IV ONE (19:57)
[2024-06-14] MEDS ORDERED: FAMOTIDINE 20 MG/2 ML VIAL IV ONE (19:57)
[2024-06-14] MEDS ORDERED: IBUPROFEN 400 MG TAB ONE (19:57)
[2024-06-14] MEDS ORDERED: ACETAMINOPHEN 500 MG TAB ONE (19:57)
[2024-06-14] MEDS ORDERED: NA CHLORIDE 0.9% 1,000 ML ONE ×2 (19:58→22:50)
[2024-06-14] MEDS ORDERED: NA CHLORIDE 0.9% 100 ML ONE ×2 (19:58→21:13)
[2024-06-14 20:01] LABS: Absolute Basophils 0.1 K/uL (0-0.5); Absolute Eosinophils 0.1 K/uL (0-0.5); Absolute Lymphocytes (CBC) 0.4 K/uL (0.7-4.9); Absolute Monocytes 0.6 K/uL (0.1-1.3); Absolute Neutrophil 14.6 K/uL (1.8-8.0); Basophils % 0.9 % (0-1.3); Eosinophils % 0.5 % (0-4.4); Hematocrit 39.1 % (39.6-49.0); Hemoglobin 12.8 g/dL (13.6-17.9); Lymphocytes % 2.6 % (15.3-44.8); MCH 25.6 pg (27.0-35.0); MCHC 32.8 g/dL (32.0-36.0); MCV 78.1 fL (80-100); Monocytes % 3.7 % (3.3-12.3); Neutrophils % 92.3 % (41.7-73.7); Platelets 89 thou/uL (152-406); RBC Red Blood Cell Count 5.01 M/uL (4.33-5.43); Red Cell Distribution Width 23.4 % (12.1-15.2)
--- NOTE | 2024-06-14 20:04 | RAD REPORT ---
EXAMINATION: ONE VIEW CHEST XR CLINICAL INDICATION: COUGH TECHNIQUE: Frontal chest projection is submitted. Examination is limited by patient positioning and t echnique. COMPARISON: 06/03/2024 FINDINGS: Moderate bilateral pulmonary opacities may represent pulmonary edema or pneumonia. Small bilateral pl eural effusions. The heart is moderately enlarged. Multilead pacer/defibrillator device.
[2024-06-14 20:06] LABS: PT Prothrombin Time 14.3 SECONDS (10-13.0); Protime INR 1.27
[2024-06-14 20:18] LABS: Albumin 2.2 g/dL (3.4-5.0); Albumin/Globulin Ratio 0.4 (1.1-1.8); Anion Gap 10.9 mEq/L (5.0-15.0); Bilirubin Direct 0.2 mg/dL (0-0.2); Bilirubin Indirect, Calculated 0.3 mg/dL (0.2-0.8); Bilirubin Total 0.5 mg/dL (0.2-1.0); Globulin 5.4 g/dL (2.3-3.5); Magnesium 1.6 mg/dL (1.6-2.4); Potassium 4.9 mEq/L (3.5-5.1); Protein, Total 7.6 g/dL (6.4-8.2); Troponin High Sensitivity 42.8 pg/mL (<58.9)
[2024-06-14 20:33] LABS: Influenza A Ag Negative; Influenza B Ag Negative; SARS-CoV-2 Antigen Rapid Res Negative (Negative)
[2024-06-14 20:56] LABS: Anisocytosis 2+; Blood Morphology Comment NOTED (NOT SEEN); Platelet Estimate DECR; Polychromasia 1+; White Blood Cell Scan OK (OK)
[2024-06-14] MEDS ORDERED: CEFEPIME 1 GM/VIAL ONE (21:14)
--- NOTE | 2024-06-14 23:40 | ER ---
Nurse's Notes [facility] Name: Branden Adams Age: 84 yrs Sex: Male : 1940 Arrival Date: 06/14/2024 Time: 18:46 Bed 25 Private MD: Diagnosis: Pneumonia, probable UTI Presentation: 06/14 18:53 Chief complaint: EMS states: they were toned out to a senior care in [place] for AMS and kc6 fever. pt was recently treated here for pneumonia but also reportedly has frequent UTI's. Coronavirus screen: At this time, the client does not indicate any symptoms associated with coronavirus-19. Ebola Screen: No symptoms or risks identified at this time. Initial Sepsis Screen: Does the patient meet any 2 criteria? Temp <36.0*C (96.8*F)) or > 38.3*C (100.9*F). Altered Mental Status. Yes Does the patient have a suspected source of infection? No. Patient's initial sepsis screen is negative. Risk Assessment: Do you want to hurt yourself or someone else? Patient reports no desire to harm self or others. Onset of symptoms was June 14, 2024. Care prior to arrival: Medication(s) given: Lactated Ringers 500 mL IV initiated. 20 GA, in the left forearm, Glucose check: 231. 18:53 Method Of Arrival: EMS: [facility] kc6 18:53 Acuity: JAD 2 kc6 Triage Assessment: 18:55 General: Appears in no apparent distress. comfortable, unkempt, well developed, kc6 Behavior is calm, cooperative, appropriate for age. Pain: Denies pain. Neuro: Level of Consciousness is awake, alert, obeys commands, confused, Oriented to person, place. Historical: - Allergies: 18:55 Benadryl; kc6 18:55 PENICILLINS; kc6 18:55 Vancomycin; kc6 - Home Meds: 18:55 Unable to obtain [Active]; kc6 - PMHx: 18:55 Pace maker; HTN; COLON CA; CHF; Diabetes mellitus; kc6 - PSHx: 18:55 Unable to Obtain; kc6 - Immunization history:: Adult Immunizations unknown. - Infectious Disease History:: Denies. - Social history:: Smoking status: unknown. Screenin:57 [facility] ED Fall Risk Assessment (Adult) History of falling in the last 3 months, kc6 including since admission No falls in past 3 months (0 pts) Confusion or Disorientation Yes (5 pts) Intoxicated or Sedated No (0 pts) Impaired Gait Yes (1 pt) Mobility Assist Device Used Yes (1 pt) Altered Elimination No (0 pt) Score/Fall Risk Level 3 or more points = High Risk Oriented to surroundings, Maintained a safe environment, Educated pt \T\ family on fall prevention, incl call for assistance when getting out of bed. Abuse screen: Denies threats or abuse. Denies injuries from another. Nutritional screening: No deficits noted. Tuberculosis screening: No symptoms or risk factors identified. Assessment: 21:07 General: Appears in no apparent distress. uncomfortable, Behavior is calm, cooperative, cp4 appropriate for age. Pain: Denies pain. Neuro: Level of Consciousness is awake, alert, obeys commands, Oriented to person, place. Cardiovascular: Patient's skin is warm and dry. Rhythm is sinus rhythm. Respiratory: Airway is patent Respiratory effort is even, unlabored. GI: No deficits noted. : No deficits noted. EENT: No deficits noted. Derm: No deficits noted. Musculoskeletal: No deficits noted. 21:51 Reassessment: Patient states he is still unable to provide urine sample. Patient cp4 refused hedrick catheter. 22:55 Reassessment: Provider notified of blood pressure dropping to the 80s. Fluids ordered. cp4 Vital Signs: 18:53 BP 111 / 66; Pulse 58; Resp 18 S; Temp 103.2(O); Pulse Ox 88% on R/A; Pain 0/10; kc6 18:56 Pulse Ox 95% on 3 lpm NC; kc6 19:28 Weight 72.57 kg; cp4 21:09 BP 113 / 64; Pulse 91; Resp 18; Pulse Ox 99% on 2 lpm NC; cp4 21:48 Temp 98.4; cp4 22:16 BP 93 / 64; Pulse 93; Resp 18; Pulse Ox 97% on 2 lpm NC; cp4 22:54 BP 87 / 50; Pulse 76; Resp 18; Pulse Ox 97% on 2 lpm NC; cp4 23:42 BP 98 / 58; Pulse 71; Resp 18; Pulse Ox 97% on 2 lpm NC; cp4 23:46 BP 101 / 64; cp4 18:53 Pain Scale: Adult kc6 ED Course: 18:52 Patient arrived in ED. kc6 18:55 Triage completed. kc6 18:55 Arm band placed on. kc6 18:56 Patient has correct armband on for positive identification. Placed in gown. Bed in low kc6 position. Call light in reach. Side rails up X2. Pulse ox on. NIBP on. Door closed. Noise minimized. Lights dimmed. Pillow given. Verbal reassurance given. 18:56 Maintain EMS IV. Dressing intact. Good blood return noted. Site clean \T\ dry. Gauge \T\ era 6 site: 20G LFA. Flushed with 10 mL NS. Oxygen administration via nasal cannula \T\ 3L/min. 19:07 Report given to Ladonna Hermosillo RN. kc6 19:13 Rosendo Pollock MD is Attending Physician. [facility] 19:16 Shandra Hermosillo is Primary Nurse. cp4 19:49 Initial lab(s) drawn, by me, sent to lab. First set of blood cultures drawn by me, cp4 Second set of blood cultures drawn by me, EKG done, by ED staff, reviewed by Jose E Stephens MD COVID swab sent to lab. Flu and/or RSV swab sent to lab. Strep swab sent to lab. 19:53 Inserted saline lock: 20 gauge in right forearm, using aseptic technique. Blood cp4 collected. Flushed with 10 mL NS. 20:05 Attending Physician role handed off by Rosendo Pollock MD sp3 20:05 Jose E Stephens MD is Attending Physician. sp3 21:07 No provider procedures requiring assistance completed. cp4 23:38 Prince Acuña MD is Hospitalizing Provider. sp3 23:40 XRAY Chest (1 view) In Process Unspecified. EDMS 06/15 01:37 Provided Education on: admission. cp4 01:37 Patient admitted, IV remains in place. cp4 Administered Medications: 06/14 19:54 Drug: NS 0.9% IV (30 ml/kg) 30 ml/kg IV at bolus once; Sepsis Protocol; to be given as cp4 a bolus over 90 minutes Route: IV; Rate: bolus; Site: right forearm; 21:48 Follow up: IV Status: Completed infusion cp4 20:09 Drug: Meropenem IV 1 grams IV at per protocol once; (mix in NS 100 mL) Route: IV; Rate: cp4 per protocol; Site: right forearm; 20:50 Follow up: IV Status: Completed infusion cp4 20:09 Drug: Acetaminophen PO 1000 mg PO once Route: PO; cp4 21:48 Follow up: Response: No adverse reaction; Temperature is decreased cp4 20:09 Drug: Ibuprofen PO Suspension 10 mg/kg PO once; MAX 800 MG PO X1 Route: PO; cp4 21:48 Follow up: Response: No adverse reaction; Temperature is decreased cp4 20:09 Drug: Famotidine IVP 20 mg IVP once; dilute with 10 mL 0.9% NaCl; give over 2 minutes cp4 Route: IVP; Site: left forearm; 21:48 Follow up: Response: No adverse reaction cp4 21:19 Drug: Cefepime IVPB 1 grams IVPB at 200 ml/hr once over 30 mins; (mix in NS 100 mL) cp4 Route: IVPB; Rate: 200 ml/hr; Infused Over: 30 mins; Site: right forearm; 22:00 Follow up: Response: No adverse reaction; IV Status: Completed infusion cp4 22:57 Drug: NS 0.9% IV 1000 ml IV at 1 bolus Per protocol; to be given as a bolus over 60 cp4 minutes Route: IV; Rate: 1 bolus; Site: right forearm; 23:43 Follow up: IV Status: Completed infusion cp4 Medication: 21:07 VIS not applicable for this client. cp4 Outcome: 23:39 Decision to Hospitalize by Provider. sp3 06/15 01:37 Admitted to ER Hold. Please see [facility] for further documentation. cp4 Condition: stable Instructed on the need for admit, 12:56 Patient left the ED. eb Signatures: Dispatcher [employer] EDMS Rosendo Pollock MD MD cha Botello, Elizabeth eb Patel, Setul, MD MD sp3 Ely Curry RN RN kc6 Shandra Hermosillo cp4
--- NOTE | 2024-06-14 23:40 | EDPHYS ---
Physician Documentation [facility] Name: Branden Adams Age: 84 yrs Sex: Male : 1940 Arrival Date: 06/14/2024 Time: 18:46 Bed 25 Private MD: ED Physician Jose E Stephens HPI: 06/14 20:16 This 84 yrs old Black Male presents to ER via EMS with complaints of Altered Mental sp3 Status, Fever. 20:16 . sp3 20:20 84-year-old male with history of hypertension, prior colon cancer, CHF, diabetes, sp3 pacemaker now presents to the ED via EMS for fever and altered mental status which she has had before during UTIs. He also recently had pneumonia. Patient very poor historian and unable to tell us much regarding how he is feeling. He currently denies any pain or any symptoms. ROS, history and physical limited secondary to these factors.. Historical: - Allergies: 18:55 Benadryl; kc6 18:55 PENICILLINS; kc6 18:55 Vancomycin; kc6 - Home Meds: 18:55 Unable to obtain [Active]; kc6 - PMHx: 18:55 Pace maker; HTN; COLON CA; CHF; Diabetes mellitus; kc6 - PSHx: 18:55 Unable to Obtain; kc6 - Immunization history:: Adult Immunizations unknown. - Infectious Disease History:: Denies. - Social history:: Smoking status: unknown. ROS: 20:20 Unable to obtain ROS due to altered mental status, baseline dementia, sp3 Exam: 20:21 Constitutional: This is a well developed, well nourished patient who is awake, alert, sp3 and in no acute distress. Head/Face: Normocephalic, atraumatic. Neck: Trachea midline, no thyromegaly or masses palpated, and no cervical lymphadenopathy. Supple, full range of motion without nuchal rigidity, or vertebral point tenderness. No Meningismus. Chest/axilla: Normal chest wall appearance and motion. Nontender with no deformity. No lesions are appreciated. Cardiovascular: Regular rate and rhythm with a normal S1 and S2. No gallops, murmurs, or rubs. Normal PMI, no JVD. No pulse deficits. Respiratory: Lungs have equal breath sounds bilaterally, clear to auscultation and percussion. No rales, rhonchi or wheezes noted. No increased work of breathing, no retractions or nasal flaring. Abdomen/GI: Soft, non-tender, with normal bowel sounds. No distension or tympany. No guarding or rebound. No evidence of tenderness throughout. Back: No spinal tenderness. No costovertebral tenderness. Full range of motion. 20:21 Musculoskeletal/extremity: Lower extremities and contractures.. 20:22 ECG was reviewed by the Attending Physician. EKG demonstrates sinus arrhythmia with sp3 demand pacers and a right bundle branch block pattern due to pacing. Vital Signs: 18:53 BP 111 / 66; Pulse 58; Resp 18 S; Temp 103.2(O); Pulse Ox 88% on R/A; Pain 0/10; kc6 18:56 Pulse Ox 95% on 3 lpm NC; kc6 19:28 Weight 72.57 kg; cp4 21:09 BP 113 / 64; Pulse 91; Resp 18; Pulse Ox 99% on 2 lpm NC; cp4 21:48 Temp 98.4; cp4 22:16 BP 93 / 64; Pulse 93; Resp 18; Pulse Ox 97% on 2 lpm NC; cp4 22:54 BP 87 / 50; Pulse 76; Resp 18; Pulse Ox 97% on 2 lpm NC; cp4 23:42 BP 98 / 58; Pulse 71; Resp 18; Pulse Ox 97% on 2 lpm NC; cp4 23:46 BP 101 / 64; cp4 18:53 Pain Scale: Adult kc6 MDM: 19:14 Medical Screening Exam initiated ankit 20:22 Data reviewed: vital signs, nurses notes, old medical records, lab test result(s), EKG, sp3 radiologic studies. ED course: . 23:37 ED course: Patient has patchy infiltrates on chest x-ray. He will not give a urine sp3 sample and refuses to be catheterized. WBC increased and blood pressure in the 90-100 systolic range. Patient is mentating well and is not tachycardic. Cefepime given and we will admit patient to the hospitalist at this time.. 06/14 19:16 Order name: Basic Metabolic Panel; Complete Time: 23:42 [facility] 06/14 19:16 Order name: CBC with Diff [facility] 06/14 19:16 Order name: LFT's; Complete Time: 23:42 [facility] 06/14 19:16 Order name: Magnesium; Complete Time: 23:42 [facility] 06/14 19:16 Order name: NT PRO-BNP; Complete Time: 23:42 [facility] 06/14 19:16 Order name: PT-INR; Complete Time: 23:42 [facility] 06/14 19:16 Order name: Troponin HS; Complete Time: 23:42 [facility] 06/14 19:16 Order name: Lipase; Complete Time: 23:42 [facility] 06/14 19:16 Order name: Urinalysis w/ reflexes [facility] 06/14 19:16 Order name: Blood Culture Adult (2) ankit 06/14 19:16 Order name: Lactate w/ 2H reflex if indic.; Complete Time: 23:43 [facility] 06/14 19:16 Order name: COVID-19 Ag + Flu A+B Ag; Complete Time: 23:43 [facility] 06/14 19:16 Order name: Group A Streptococcus Rapid; Complete Time: 23:43 [facility] 06/14 23:43 Order name: Throat Culture EDSD 06/14 23:45 Order name: CBC Smear Scan EDMS 06/15 00:04 Order name: Magnesium EDMS 06/15 00:04 Order name: Basic Metabolic Panel EDMS 06/15 00:04 Order name: Basic Metabolic Panel EDMS 06/15 00:04 Order name: Lipid Profile EDMS 06/15 00:04 Order name: Lipid Profile EDMS 06/15 00:04 Order name: Phosphorus EDMS 06/15 00:04 Order name: CBC with Automated Diff EDMS 06/15 00:04 Order name: CBC with Automated Diff EDMS 06/15 05:24 Order name: Phosphorus EDMS 06/15 05:24 Order name: Magnesium EDMS 06/15 10:53 Order name: Potassium EDMS 06/15 11:57 Order name: Glucose, Ancillary Testing EDMS 06/14 19:16 Order name: XRAY Chest (1 view); Complete Time: 23:43 [facility] 06/15 00:04 Order name: Physical Therapy Consult EDMS 06/14 19:16 Order name: Cardiac monitoring; Complete Time: 19:53 [facility] 06/14 19:16 Order name: EKG - Nurse/Tech; Complete Time: 19:28 [facility] 06/14 19:16 Order name: IV Saline Lock; Complete Time: 19:53 [facility] 06/14 19:16 Order name: Labs collected and sent; Complete Time: 19:53 [facility] 06/14 19:16 Order name: O2 Per Protocol; Complete Time: 19:53 [facility] 06/14 19:16 Order name: O2 Sat Monitoring; Complete Time: 19:53 [facility] Administered Medications: 19:54 Drug: NS 0.9% IV (30 ml/kg) 30 ml/kg IV at bolus once; Sepsis Protocol; to be given as cp4 a bolus over 90 minutes Route: IV; Rate: bolus; Site: right forearm; 21:48 Follow up: IV Status: Completed infusion cp4 20:09 Drug: Meropenem IV 1 grams IV at per protocol once; (mix in NS 100 mL) Route: IV; Rate: cp4 per protocol; Site: right forearm; 20:50 Follow up: IV Status: Completed infusion cp4 20:09 Drug: Acetaminophen PO 1000 mg PO once Route: PO; cp4 21:48 Follow up: Response: No adverse reaction; Temperature is decreased cp4 20:09 Drug: Ibuprofen PO Suspension 10 mg/kg PO once; MAX 800 MG PO X1 Route: PO; cp4 21:48 Follow up: Response: No adverse reaction; Temperature is decreased cp4 20:09 Drug: Famotidine IVP 20 mg IVP once; dilute with 10 mL 0.9% NaCl; give over 2 minutes cp4 Route: IVP; Site: left forearm; 21:48 Follow up: Response: No adverse reaction cp4 21:19 Drug: Cefepime IVPB 1 grams IVPB at 200 ml/hr once over 30 mins; (mix in NS 100 mL) cp4 Route: IVPB; Rate: 200 ml/hr; Infused Over: 30 mins; Site: right forearm; 22:00 Follow up: Response: No adverse reaction; IV Status: Completed infusion cp4 22:57 Drug: NS 0.9% IV 1000 ml IV at 1 bolus Per protocol; to be given as a bolus over 60 cp4 minutes Route: IV; Rate: 1 bolus; Site: right forearm; 23:43 Follow up: IV Status: Completed infusion cp4 Disposition Summary: 06/14/24 23:39 Hospitalization Ordered Notes: Hospitalization Status: Inpatient Admission sp3 Provider: Prince temo Acuña Condition: Stable sp3 Problem: an acute exacerbation sp3 Symptoms: have worsened sp3 Bed/Room Type: Standard sp3 Location: Telemetry/MedSurg (Inpatient)(06/15/24 11:15) eb Room Assignment: 219(06/15/24 11:15) eb Diagnosis - Pneumonia, probable UTI sp3 Forms: - Medication Reconciliation Form sp3 - SBAR form sp3 - Leadership Thank You Letter sp3 Signatures: Dispatcher [employer] EDMS Rosendo Pollock MD MD cha Botello, Elizabeth eb Able, Lacie, RN RN lg3 Jose E Stephens MD MD sp3 Ely Curry RN RN kc6 Shandra Hermosillo cp4 Corrections: (The following items were deleted from the chart) 19:16 19:16 BASIC METABOLIC PANEL+C.LAB.BRZ ordered. EDMS EDMS 19:16 19:16 CBC+H.LAB.BRZ ordered. EDMS EDMS 19:16 19:16 HEPATIC FUNCTION+C.LAB.BRZ ordered. EDMS EDMS 19:16 19:16 MAGNESIUM+C.LAB.BRZ ordered. EDMS EDMS 19:16 19:16 PROBNP+C.LAB.BRZ ordered. EDMS EDMS 19:16 19:16 PROTIME (+INR)+COAG.LAB.BRZ ordered. EDMS EDMS 19:16 19:16 Troponin High Sensitivity+C.LAB.BRZ ordered. EDMS EDMS 19:16 19:16 LIPASE+C.LAB.BRZ ordered. EDMS EDMS 19:16 19:16 Urinalysis+U.LAB.BRZ ordered. EDMS EDMS 19:16 19:16 BLOOD CULTURE*+BA.LAB.BRZ ordered. EDMS EDMS 19:16 19:16 LACTATE+C.LAB.BRZ ordered. EDMS EDMS 19:16 19:16 COVID-19 Ag + Flu A+B Ag+I.LAB.BRZ ordered. EDMS EDMS 19:16 19:16 Group A Streptococcus Rapid Sc+I.LAB.BRZ ordered. EDMS EDMS 20:09 19:16 Vargas ordered. ankit cp4 23:52 23:39 Telemetry/MedSurg (Inpatient) sp3 lg3 23:52 23:39 sp3 lg3 06/15 11:15 04 23:52 [facility] ER HOLD lg3 eb 04/12 11:15 06/14 23:52 ERHOLD- lg3 eb
[2024-06-14] MEDS ORDERED: IPRATROPIUM BROM 0.5MG/2.5ML NEB PRN (23:58)
[2024-06-14] MEDS ORDERED: ONDANSETRON 4 MG/2 ML VIAL IV PRN (23:58)
[2024-06-14] MEDS ORDERED: ALBUTEROL 2.5 MG/3 ML NEB SOL NEB PRN (23:58)
[2024-06-15] MEDS: Meropenem 1,000 MG in NA CHLORIDE 0.9% 100 ML IV SCH
--- NOTE | 2024-06-15 00:09 | P.HP ---
Certification for Inpatient Patient admitted to: Inpatient With expected LOS: >2 Midnights Practitioner: I am a practitioner with admitting privileges, knowledge of patient current condition, hospital course, and medical plan of care. Services: Services provided to patient in accordance with Admission requirements found in Title 42 Section 412.3 of the Code of Federal Regulations Patient History Date of Service: 06/15/24 Reason for admission: Fever and altered mental status History of Present Illness: Patient was evaluated before midnight. This is a 84-year-old -[place]er male brought in from a residential via EMS for reportedly altered mental status and fever. He had a fever of 103 degrees upon arrival. Patient states that he has been feeling dizzy. He is a p oor historian. Workup in the ER included a WBC of 15,000 and a chest x-ray which revealed bilateral pleural effusion, pulmonary edema and bilateral opacities concerning for pneumonia. Patient is currently on supplemental oxygen. Urine sample could not be obtained upon arrival to urinary retention. Patient has refused straight cath. Patient was also hypotensive in the ER with SBP reaching as low as 70 mmHg. During my evaluation, his blood pressure has climbed back up to 103 mmHg. As per chart review, he has a history of hypertension, colon cancer, CHF, diabetes mellitus. Allergies diphenhydramine [From Benadryl] Allergy (Verified 04/24/24 03:53) Hives/Rash Penicillins Allergy (Verified 04/24/24 02:36) Hives/Rash vancomycin Allergy (Verified 04/24/24 02:36) Hives Home Medications: Acetaminophen 650 mg PO Q6H PRN 04/24/24 Empagliflozin [Jardiance] 10 mg PO DAILY 04/24/24 Ferrous Sulfate 325 mg PO BID 04/24/24 Gabapentin 300 mg PO TID 04/24/24 Insulin Glargine,Hum.rec.anlog [Lantus] 17 unit SQ BEDTIME 04/24/24 Tamsulosin [Flomax*] 0.4 mg PO BID 04/24/24 Allopurinol 100 mg PO DAILY 06/04/24 Ascorbic Acid 1 tab PO DAILY 06/04/24 Atorvastatin Calcium 1 tab PO BEDTIME 06/04/24 Furosemide [Lasix] 1 tab PO SEECOM 06/04/24 Insulin Lispro See Protocol SQ SEECOM 06/04/24 Lidocaine 4% Patch [Lidoderm 5% Patch*] 1 appl TOP BEDTIME 06/04/24 Pantoprazole [Protonix Tab*] 1 tab PO DAILY 06/04/24 Zinc Gluconate [Zinc] 1 tab PO BEDTIME 06/04/24 Cefdinir [Cefdinir*] 300 mg PO BID #14 cap 06/06/24 Ensure Max Protein 330 ml PO TID #90 can 06/06/24 Hydrocodone 5/APAP 325 [[place] 5/325*] 1 tab PO Q4H PRN #30 tab 06/06/24 Kj [Kj*] 1 pkt PO BID #60 packet 06/06/24 - Past Medical/Surgical History Diabetic: Yes -: CHF -: HTN -: Colon Cancer -: Pacemaker - Family History Mother -: Heart disease, Hypertension, Diabetes Father -: Hypertension, Diabetes - Social History Alcohol use: No CD- Drugs: No Caffeine use: Yes Physical Examination - Physical Exam General: Acute distress, Other (Frail and physically deconditioned) HEENT: Atraumatic, Normocephalic Respiratory: Diminished (Pacemaker in place) Cardiovascular: No edema, Normal pulses, Regular rate/rhythm, Normal S1 S2 Neurological: Dementia - Studies Laboratory Data (last 24 hrs) 06/14/24 06/14/24 06/14/24 19:47 19:47 19:47 WBC 15.90 H Hgb 12.8 L Hct 39.1 L Plt Count 89 L PT 14.3 H INR 1.27 Sodium 128 L Potassium 4.9 BUN 18 Creatinine 1.32 H Glucose 266 H Magnesium 1.6 Total Bilirubin 0.5 AST 20 ALT 16 Alkaline Phosphatase 95 Lipase 12 L Assessment and Plan - Problems (Diagnosis) (1) Anemia Current Visit: No Status: Acute (2) Colon cancer Current Visit: No Status: Acute (3) Diabetes Current Visit: No Status: Acute (4) Pneumonia Current Visit: No Status: Acute (5) Sepsis Current Visit: No Status: Acute - Plan Assessment This is a 84-year -[place]er male who is being admitted for sepsis after he presented with fever and altered mental status. Workup so far is included a chest x-ray which demonstrated evidence of pneumonia. His urine analysis is still pending as patient has been unable to provide urine sample. While in the ER, he was hypotensive as well with a blood pressure of 71 mmHg. Sepsis Pneumonia Hypotension CHRISTINA Colon cancer Type 2 diabetes mellitus Plan: Will admit inpatient with telemetry Start patient on meropenem due to penicillin and vancomycin allergy A trial of Lasix and albumin if blood pressure tolerates A trial of midodrine Supplemental oxygen, DuoNebs as needed 2D echo Resume rest of home medication upon reconciliation - Advance Directives Does patient have a Living Will: No Does patient have a Durable POA for Healthcare: Yes
[2024-06-15] MEDS: MIDODRINE HCL 5 MG TABLET PO SCH (00:10)
[2024-06-15] MEDS ORDERED: MIDODRINE HCL 5 MG TABLET ONE ×2 (00:28→11:24)
[2024-06-15 00:52] VITALS: BMI 21.7
[2024-06-15 01:30] LABS: Specific Gravity 1.026 (1.005-1.030); Urine Bacteria None Seen /HPF (<20); Urine Bilirubin NEGATIVE (Negative); Urine Blood Negative (Negative); Urine Clarity Turbid (Clear); Urine Color Yellow (Yellow); Urine Culture Reflex Order REFLEXED; Urine Glucose 4+ (Over) (Negative); Urine Ketones NEGATIVE (Negative); Urine Microscopic Reflex YN ORDER UMIC; Urine Mucus Slight /HPF (None Seen); Urine Nitrite NEGATIVE (Negative); Urine Protein TRACE (Negative); Urine RBC 21-50 /HPF (None Seen); Urine Urobilinogen Normal (Normal); Urine Yeast (Budding) Few /HPF (None Seen); Urine pH 5.5 (5.0-7.0)
[2024-06-15 05:24] LABS: Magnesium 1.6 mg/dL (1.6-2.4); Phosphorus 4.1 mg/dL (2.5-4.9)
--- NOTE | 2024-06-15 11:18 | P.PN ---
Subjective Date of Service: 06/15/24 (Hospitalist) Chief Complaint: Fever and altered mental status Subjective: Improving (Patient is 84 years of age long-term resident a very poor historian apparently admitted with vomiting and fever he has multiple ulcers on his feet lives in a long-term chest x-ray possible pneumonia he may have had a UTI) Review of Systems 10-point ROS is otherwise unremarkable General: Weakness Respiratory: Shortness of Breath Physical Examination - Vital Signs Temperature: 97.6 F Blood Pressure: 112/72 Pulse: 85 Respirations: 18 Pulse Ox (%): 98 - Physical Exam General: Alert, Cooperative Respiratory: Clear to auscultation bilaterally Cardiovascular: Normal S1 S2, Edema Gastrointestinal: Normal bowel sounds, Soft and benign Musculoskeletal: No clubbing Integumentary: Pressure ulcer (Pressure ulcers on both his feet) Neurological: Normal speech - Studies Laboratory Data (last 24 hrs) 06/14/24 06/14/24 06/14/24 19:47 19:47 19:47 WBC 15.90 H Hgb 12.8 L Hct 39.1 L Plt Count 89 L PT 14.3 H INR 1.27 Sodium 128 L Potassium 4.9 BUN 18 Creatinine 1.32 H Glucose 266 H Magnesium 1.6 Total Bilirubin 0.5 AST 20 ALT 16 Alkaline Phosphatase 95 Lipase 12 L Assessment And Plan - Current Problems (Diagnosis) (1) Pneumonia Current Visit: No Status: Acute Plan: Patient is 84 years of age generally in poor health long-term resident admitted with altered mental status fever he is a very poor historian he is not oriented to time patient's white count is elevated urinalysis positive for leukocyte Estrace nitrite negative chest x-ray shows bilateral pulmonary inf iltrates renal function is also abnormal plan to admit start him on broad- spectrum antibiotics await cultures start on IV fluids continue to monitor patient's blood pressure is stable check of oxygen Qualifiers: Pneumonia type: due to unspecified organism
[2024-06-15] MEDS ORDERED: GLUCAGON 1 MG/VIAL IM PRN (11:20)
[2024-06-15] MEDS ORDERED: D10W 125 ML IV PRN (11:20)
[2024-06-15] MEDS ORDERED: HEPARIN 5000 UNIT/ML 1 ML VIAL ONE (11:23)
[2024-06-15] MEDS ORDERED: Meropenem 1000 MG/VIAL IV ONE (11:24)
[2024-06-15] MEDS ORDERED: NA CHLORIDE 0.9% 100 ML ONE (11:24)
[2024-06-15] MEDS: HEPARIN 5000 UNIT/ML 1 ML VIAL SQ SCH (11:27)
[2024-06-15] MEDS ORDERED: MAGNESIUM OXIDE 400 MG TAB ONE (11:28)
[2024-06-15] MEDS: MAGNESIUM OXIDE 400 MG TAB PO ONE (11:28)
[2024-06-15] MEDS: VANCOMYCIN 1 GM in NA CHLORIDE 0.9% 250 ML IVPB SCH (12:00)
[2024-06-15] MEDS ORDERED: INSULIN REGULAR (HUMAN) 100 UNIT/ML ONE (12:01)
[2024-06-15] MEDS: INSULIN REGULAR (HUMAN) 100 UNIT/ML SQ SCH (12:04)
[2024-06-15] MEDS: VANCOMYCIN 1.25 GM in NA CHLORIDE 0.9% 250 ML IVPB SCH (13:00)
[2024-06-15] MEDS: INSULIN GLARGINE 100 UNIT/ML SQ SCH (20:34)
[2024-06-16] MEDS: ACETAMINOPHEN 500 MG TAB PO PRN (03:51)
[2024-06-16 07:04] LABS: Absolute Basophils 0.1 K/uL (0-0.5); Absolute Eosinophils 0.1 K/uL (0-0.5); Absolute Lymphocytes (CBC) 0.8 K/uL (0.7-4.9); Absolute Neutrophil 12.5 K/uL (1.8-8.0); Basophils % 0.6 % (0-1.3); Eosinophils % 0.9 % (0-4.4); Hematocrit 31.2 % (39.6-49.0); Hemoglobin 10.1 g/dL (13.6-17.9); Lymphocytes % 5.6 % (15.3-44.8); MCH 25.3 pg (27.0-35.0); MCHC 32.4 g/dL (32.0-36.0); MPV 8.3 fL (7.6-11.3); Monocytes % 6.7 % (3.3-12.3); Neutrophils % 86.2 % (41.7-73.7); Nucleated Red Blood Cells % 0.1 % (0-0); Platelets 104 thou/uL (152-406); Red Cell Distribution Width 23.1 % (12.1-15.2)
[2024-06-16 07:09] LABS: Anion Gap 8.9 mEq/L (5.0-15.0); Potassium 3.9 mEq/L (3.5-5.1)
[2024-06-16 08:11] LABS: Anisocytosis 1+; Blood Morphology Comment NOTED (NOT SEEN); Microcytosis SLIGHT; Platelet Estimate DECR; White Blood Cell Scan OK (OK)
[2024-06-16] MEDS: GABAPENTIN 300 MG CAP PO SCH ×2 (09:02→13:24)
[2024-06-16] MEDS ORDERED: ACETAMINOPHEN 325 MG TABLET PO PRN (10:26)
--- NOTE | 2024-06-16 10:32 | P.PN ---
Subjective Date of Service: 06/16/24 Chief Complaint: Fever and altered mental status Subjective: Improving (Patient is improving doing well no new complaints complaining of feeling constipated) Review of Systems Unremarkable General: Weakness Respiratory: Shortness of Breath Physical Examination - Vital Signs Temperature: 98.1 F Blood Pressure: 107/61 Pulse: 81 Respirations: 16 Pulse Ox (%): 93 - Physical Exam General: Alert, Oriented x3 Respiratory: Clear to auscultation bilaterally Cardiovascular: Regular rate/rhythm, Normal S1 S2, Edema Assessment And Plan - Current Problems (Diagnosis) (1) Pneumonia Current Visit: No Status: Acute Plan: Patient is 84 years of age of poor health he does not ambulate at home he is Some ulcers on his feet admitted from a correction he is doing better so far white count is declining source of fever is not evident cultures are pending possible pneumonia or urinary tract infection continue with present antibiotics resume his home medications possible discharge tomorrow back to the correction depending on cultures repeat chest x-ray has been ordered Qualifiers: Pneumonia type: due to unspecified organism Laterality: unspecified laterality
[2024-06-16] MEDS ORDERED: FUROSEMIDE 20 MG TABLET PO SCH (11:00)
--- NOTE | 2024-06-16 12:29 | RAD REPORT ---
EXAMINATION: ONE VIEW CHEST XR CLINICAL INDICATION: Male, 84 years old.,pneumonia TECHNIQUE: Frontal chest projection is submitted. Examination is limited by patient positioning and t echnique. COMPARISON: 06/14/2024 FINDINGS: Patchy bilateral airspace opacities most confluent in the left perihilar and retrocardiac space, stab le. No pneumothorax or sizable effusion. The heart is normal in size. Mediastinal contours are unchanged with right chest wall pacer again seen. IMPRESSION: Stable bilateral airspace opacities worse on the left, could reflect sequelae of pneumonia or pulmona ry edema.
[2024-06-16] MEDS: ENSURE MAX PROTEIN 330 ML LIQUID PO SCH (13:25)
[2024-06-16] MEDS: HYDROCODONE/APAP 5/325 MG TAB PO PRN (16:33)
[2024-06-16] MEDS: LIDOCAINE 4% PATCH TOP SCH (20:42)
[2024-06-16] MEDS: FERROUS SULFATE 325 MG TAB PO SCH (20:42)
[2024-06-16] MEDS: ATORVASTATIN 40 MG TAB PO SCH (20:42)
[2024-06-16] MEDS: TAMSULOSIN 0.4 MG SR CAP PO SCH (20:42)
[2024-06-16] MEDS: JUVEN PACKET PO SCH (20:43)
[2024-06-17 05:50] LABS: Hematocrit 30.5 % (39.6-49.0); Hemoglobin 10.1 g/dL (13.6-17.9); MCH 26.2 pg (27.0-35.0); MCHC 33.1 g/dL (32.0-36.0); MCV 79.1 fL (80-100); Platelets 131 thou/uL (152-406); RBC Red Blood Cell Count 3.86 M/uL (4.33-5.43)
[2024-06-17 06:15] LABS: Anion Gap 6.1 mEq/L (5.0-15.0); Potassium 4.1 mEq/L (3.5-5.1)
--- NOTE | 2024-06-17 07:50 | RAD REPORT ---
EXAMINATION: ONE VIEW CHEST XR CLINICAL INDICATION: pneumonia TECHNIQUE: Frontal chest projection is submitted. Examination is limited by patient positioning and t echnique. COMPARISON: 06/16/2024 FINDINGS: Mild to moderate bilateral pulmonary edema is suspected. Trace pleural fluid bilaterally. The heart i s upper limit of normal in size. Multilead pacer device is present. IMPRESSION: Mild CHF versus volume overload pattern is suspected.
[2024-06-17] MEDS: HOME MED 1 EA UNK (Empagliflozin [Jardiance] 10 MG Tablet) PO SCH (09:00)
[2024-06-17] MEDS: PANTOPRAZOLE 40MG TABLET PO SCH (10:14)
[2024-06-17] MEDS: allopurinoL 100 MG TAB PO SCH (10:14)
[2024-06-17] MEDS: ASCORBIC ACID 500 MG TABLET PO SCH (10:15)
--- NOTE | 2024-06-17 10:55 | EKG ---
Test Date: 2024-06-14 Test Time: 19:22:52 Finish Rolls Operator: BETHANY MEASUREMENT RESULTS: Intervals: Rate: 90 OR: 140 QRSD: 130 QT: 400 QTc: 489 [place]: P: 0 OR: 140 QRS: -80 T: 94 INTERPRETIVE STATEMENTS: Sinus rhythm with premature atrial complexes Left axis deviation Right bundle branch block Inferior infarct, age undetermined Abnormal ECG Compared to ECG 06/03/2024 20:14:19 Atrial premature complex(es) now present Left-axis deviation now present Right bundle-branch block now present Myocardial infarct finding now present Ventricular premature complex(es) no longer present Ventricular-paced complex(es) or rhythm no longer present Electronically Signed On 06-17-24 10:50:13 CDT by Delta Null
--- NOTE | 2024-06-17 13:41 | ECHO ---
HEIGHT: 6 ft 0 in WEIGHT: 159 lb 15.831 oz DATE OF STUDY: 06/17/[address]: Prince Sosa Acuña MD 2-DIMENSIONAL: YES M.MODE: YES DOPPLER: YES COLOR FLOW: YES TDS: PORTABLE: YES DEFINITY: BUBBLE STUDY: DIAGNOSIS: HYPOTENSION CARDIAC HISTORY: CATHERIZATION: NO SURGERY: NO PROSTHETIC VALVE: NO PACEMAKER: YES MEASUREMENTS (cm) DIASTOLIC (NORMALS) SYSTOLIC (NORMALS) IVSd 1.3 (0.6-1.2) LA Diam 3.3 (1.9-4.0) LVEF 55-60% LVIDd 4.4 (3.5-5.7) LVIDs 3.3 (2.0-3.5) %FS 25% LVPWd 1.3 (0.6-1.2) Ao Diam 3.7 (2.0-3.7) 2 DIMENSIONAL ASSESSMENT: RIGHT ATRIUM: NORMAL LEFT ATRIUM: NORMAL RIGHT VENTRICLE: NORMAL LEFT VENTRICLE: MODERATE LEFT VENTRICULAR HYPERTROPHY TRICUSPID VALVE: MODERATE TRICUSPID REGURGITATION MITRAL VALVE: NORMAL PULMONIC VALVE: NORMAL AORTIC VALVE: NORMAL PERICARDIAL EFFUSION: NONE AORTIC ROOT: NORMAL LEFT VENTRICULAR WALL MOTION: NORMAL DOPPLER/COLOR FLOW: GRADE II DIASTOLIC DYSFUNCTION COMMENTS: 1. MODERATE LEFT VENTRICULAR HYPERTROPHY 2. NORMAL LEFT VENTRICULAR SYSTOLIC FUNCTION, EJECTION FRACTION 55-60%, NORMAL WALL MOTION 3. GRADE II DIASTOLIC DYSFUNCTION 4. MODERATE PULMONARY HYPERTENSION (RIGHT VENTRICULAR SYSTOLIC PRESSURE 50-55 mmHg) 5. ELEVATED FILLING PRESSURE (RIGHT ATRIAL PRESSURE 10-15 mmHg) TECHNOLOGIST: FAUSTO REED
[2024-06-17] MEDS: VANCOMYCIN 1.25 GM in NA CHLORIDE 0.9% 250 ML IVPB SCH (13:48)
--- NOTE | 2024-06-17 14:59 | P.PN ---
Date of Service: 06/17/24 Subjective Admitted for confusion, sepsis secondary to pneumonia, mentation has improved, afebrile, no complaint of shortness of breath, chest pain, positive for lower extremity edema Review of Systems 10-point ROS is otherwise unremarkable Physical Examination - Vital Signs Reviewed - Physical Exam General: Alert, Cooperative Respiratory: Clear to auscultation bilaterally Cardiovascular: Normal S1 S2, + lower extreme edema Gastrointestinal: Normal bowel sounds, Soft and benign Musculoskeletal: No clubbing Integumentary: Pressure ulcer (Pressure ulcers on both his feet) Neurological: Normal speech Assessment and Plan - Problems (Diagnosis) (1) Anemia Current Visit: No Status: Acute (2) Colon cancer Current Visit: No Status: Acute (3) Diabetes Current Visit: No Status: Acute (4) Pneumonia Current Visit: No Status: Acute (5) Sepsis Current Visit: No Status: Acute - Plan Assessment This is a 84-year -[place] male who is being admitted for sepsis after he presented with fever and altered mental status. Workup so far is included a chest x-ray which demonstrated evidence of pneumonia. His urine analysis is still pending as patient has been unable to provide urine sample. While in the ER, he was hypotensive as well with a blood pressure of 71 mmHg. Sepsis improved Pneumonia improved Hypotension resolved CHRISTINA Colon cancer Type 2 diabetes mellitus Lower extremity edema Plan: Will admit inpatient with telemetry IV meropenem due to penicillin and vancomycin, A trial of Lasix and albumin if blood pressure tolerates A trial of midodrine Supplemental oxygen, DuoNebs as needed 2D echo left ventricular hypertrophy, systolic dysfunction, EF 55 to 60%, moderate pulmonary hypertension, tricuspid regurgitation Lower extremity Dopplers ordered - Advance Directives Does patient have a Living Will: No Does patient have a Durable POA for Healthcare: Yes
--- NOTE | 2024-06-17 15:17 | P.PN ---
This is an attestation to RN REFERRAL note. Subjective: No chest pain. c/o shortness of breath. No nausea or vomiting. No abdominal pain. No obvious bleeding. Looks comfortable in the bed. c/o chronic issues with leg pain. Objective: General appearance: Alert and comfortable CVS: Normal S1 and S2 Lungs: Clear to auscultation bilaterally Abdomen: Soft, bowel sounds present, no tenderness Extremities: mild b/l lower extremity edema wit venous stasis changes 84 yo patient with pneumonia, continue antibiotics, possible CHF, continue diuretics. WBC improving. Echo showed moderate tricuspid regurgitation, moderate LVH, grade 2 diastolic dysfunction, 55 to 60% ejection fraction, moderate pulmonary hypertension. Will get bilateral lower extremity venous Doppler.
--- NOTE | 2024-06-17 22:34 | RAD REPORT ---
EXAMINATION: US Extrem Venous W Compress [place] CLINICAL INDICATION: [facility] MAIN leg swelling, r/o DVT Y TECHNIQUE: Complete bilateral duplex sonography of the BILATERAL lower extremity veins was performed. The examination included compression for vein patency, color Doppler imaging and flow augmentation in response to distal compression of the distal external iliac, common femoral, femoral, popliteal, t ibial, and great and small saphenous veins. COMPARISON: 04/23/2024. FINDINGS: Duplex sonography testing of the veins of the RIGHT lower extremity reveals segmental compressible an d partially compressible thrombosis involving the proximal superficial femoral through popliteal vein. Partial extension into the saphenofemoral junction with partial compressibility. Common femoral vein otherwise patent. Duplex sonography of the left lower extremity veins reveals segmental compressible and partially comp ressible thrombosis involving the left proximal to mid superficial femoral vein extending to the saphenofemoral junction. IMPRESSION: Bilateral deep venous thrombosis as above. Compared to the prior exam the right-sided findings are pr ogressive, and the left-sided findings are new.
--- NOTE | 2024-06-18 04:59 | P.PN ---
Date of Service: 06/18/24 Called by radiology earlier today with findings of deep venous thrombosis of lower extremity. will start therapeutic Lovenox.
[2024-06-18 05:29] LABS: Absolute Basophils 0.1 K/uL (0-0.5); Absolute Eosinophils 0.3 K/uL (0-0.5); Absolute Lymphocytes (CBC) 0.9 K/uL (0.7-4.9); Absolute Monocytes 0.9 K/uL (0.1-1.3); Absolute Neutrophil 6.3 K/uL (1.8-8.0); Eosinophils % 3.9 % (0-4.4); Hematocrit 30.8 % (39.6-49.0); Hemoglobin 10.1 g/dL (13.6-17.9); Lymphocytes % 10.8 % (15.3-44.8); MCHC 32.9 g/dL (32.0-36.0); MCV 79.2 fL (80-100); MPV 7.2 fL (7.6-11.3); Monocytes % 10.5 % (3.3-12.3); Neutrophils % 73.8 % (41.7-73.7); Nucleated Red Blood Cells % 0.2 % (0-0); Platelets 149 thou/uL (152-406); RBC Red Blood Cell Count 3.89 M/uL (4.33-5.43); Red Cell Distribution Width 22.8 % (12.1-15.2)
[2024-06-18 05:52] LABS: Anion Gap 7.3 mEq/L (5.0-15.0); Potassium 4.3 mEq/L (3.5-5.1)
[2024-06-18] MEDS: ENOXAPARIN 80 MG/0.8 ML SQ SCH (08:50)
--- NOTE | 2024-06-18 18:14 | P.PN ---
Date of Service: 06/18/24 Subjective Awake, conversing well DVT to bilateral lower extremity, reports pain to his right leg Started ELiquis ROS 10 point ROS as noted above, otherwise negative Physical Exam General: Alert and oriented x3, NAD Respiratory: Clear to auscultation bilaterally Cardiovascular: Normal S1 S2, + lower extreme edema Gastrointestinal: Normal bowel sounds, Soft and benign on palpation Musculoskeletal: No clubbing Integumentary: Pressure ulcer (Pressure ulcers on both his feet) Neurological: Normal speech Vitals Reviewed Problem list Sepsis improved Pneumonia improved Hypotension resolved CHRISTINA Colon cancer Type 2 diabetes mellitus Lower extremity edema Assessment and Plan Sepsis 2/2 Pneumonia Hypotension CHRISTINA Colon cancer Type 2 diabetes mellitus Lower extremity edema Bilateral lower extremity DVT BPH Diabetes Mellitus Plan: Continue IV meropenem and vancomycin, continue midodrine Supplemental oxygen, DuoNebs as needed 2D echo left ventricular hypertrophy, systolic dysfunction, EF 55 to 60%, moderate pulmonary hypertension, tricuspid regurgitation Lower extremity Dopplers bilateral DVT- eliquis started, previous treated with weight based lovenox Continue flomax DVT ppx Eliquis Full code LOS 24 hours Time Spent Managing Pts Care (In Minutes): 35 <Sarah Devine - Last Filed: 06/19/24 06:33> Patient was seen and examined. Events of the last 24 hours have been noted. Spoke with with ZULEMA regarding patient's clinical picture after evaluating and examining the patient independently. I performed a substantial part of the MDM during this patient's care today. I personally made or approved the documented management plan and acknowledge its risk of complications. I agree with the findings and documentation provided in the ZULEMA's notes. <Bam Ruiz - Last Filed: 06/26/24 10:24>
[2024-06-18] MEDS: APIXABAN 5 MG TABLET PO SCH (22:08)
[2024-06-19 04:25] LABS: Absolute Basophils 0.1 K/uL (0-0.5); Absolute Eosinophils 0.4 K/uL (0-0.5); Absolute Lymphocytes (CBC) 1.2 K/uL (0.7-4.9); Absolute Monocytes 1.3 K/uL (0.1-1.3); Absolute Neutrophil 4.5 K/uL (1.8-8.0); Basophils % 1.1 % (0-1.3); Eosinophils % 5.4 % (0-4.4); Hematocrit 32.2 % (39.6-49.0); Hemoglobin 10.4 g/dL (13.6-17.9); Lymphocytes % 16.1 % (15.3-44.8); MCH 25.8 pg (27.0-35.0); MCHC 32.4 g/dL (32.0-36.0); MCV 79.6 fL (80-100); MPV 8.1 fL (7.6-11.3); Monocytes % 17.1 % (3.3-12.3); Neutrophils % 60.3 % (41.7-73.7); Nucleated Red Blood Cells % 0.3 % (0-0); Platelets 110 thou/uL (152-406); RBC Red Blood Cell Count 4.05 M/uL (4.33-5.43)
[2024-06-19 04:29] LABS: Red Cell Distribution Width 23.1 % (12.1-15.2)
[2024-06-19 04:47] LABS: Anion Gap 9.4 mEq/L (5.0-15.0); Potassium 4.4 mEq/L (3.5-5.1)
[2024-06-19 08:54] VITALS: O2SAT 90
--- NOTE | 2024-06-19 09:10 | P.DS ---
Admission Date: 06/14/24 Discharge Date: 06/19/24 Reason for Admission: Fever and altered mental status Brief History of Present Illness: Diagnosis Sepsis 2/2 Pneumonia Hypotension CHRISTINA Colon cancer Type 2 diabetes mellitus Lower extremity edema Bilateral lower extremity DVT BPH Diabetes Mellitus HPI 06/14/2024 Patient was evaluated before midnight. This is a 84-year-old -Turk[place] male brought in from a alf via EMS for reportedly altered mental status and fever. He had a fever of 103 degrees upon arrival. Patient states that he has been feeling dizzy. He is a poor historian. Workup in the ER included a WBC of 15,000 and a chest x-ray which revealed bilateral pleural effusion, pulmonary edema and bilateral opacities concerning for pneumonia. Patient is currently on supplemental oxygen. Urine sample could not be obtained upon arrival to urinary retention. Patient has refused straight cath. Patient was also hypotensive in the ER with SBP reaching as low as 70 mmHg. During my evaluation, his blood pressure has climbed back up to 103 mmHg. As per chart review, he has a history of hypertension, colon cancer, CHF, diabetes mellitus. Hospital Course: Branden was admitted and treated for the following diagnosis Sepsis 2/2 Pneumonia Hypotension CHRISTINA Colon cancer Type 2 diabetes mellitus Lower extremity edema Bilateral lower extremity DVT BPH Diabetes Mellitus Tolerated meropenem and vancomycin Blood culture with NGTD and urine culture Mixed franco tolerated midodrine Supplemental oxygen and DuoNebs PRN 2D echo left ventricular hypertrophy, systolic dysfunction, EF 55 to 60%, moderate pulmonary hypertension, tricuspid regurgitation Lower extremity Dopplers bilateral DVT- eliquis started, previously treated with weight based lovenox this admission, also used xarelto in the past Continued flomax On 06/19/2024, Branden was seen on morning rounds hemodynamically stable. He will discharge with Eliquis, Vantin, lidocaine patch, midodrine. Follow-up with PCP concerning bilateral lower extremity DVT and recovering. Physical Exam General: AAO x3, NAD Respiratory: Clear BBS, on RA Cardiovascular: Normal S1 S2, + lower extreme edema Gastrointestinal: Normal bowel sounds, Soft and benign on palpation Musculoskeletal: No clubbing Integumentary: Pressure ulcer (Pressure ulcers on both his feet) Neurological: Normal speech <Sarah Devine - Last Filed: 06/19/24 19:14> Admission Date: 06/14/24 Discharge Date: 06/19/24 Hospital Course: Patient was seen and examined. Events of the last 24 hours have been noted. Spoke with with ZULEMA regarding patient's clinical picture after evaluating and examining the patient independently. I performed a substantial part of the MDM during this patient's care today. I personally made or approved the documented management plan and acknowledge its risk of complications. I agree with the findings and documentation provided in the ZULEMA's notes. <Bam Ruiz - Last Filed: 06/26/24 10:25> Disposition: TRANSFER TO HALF-WAY Discharge Condition: GOOD Vital Signs/Physical Exam: Temp Pulse Resp BP Pulse Ox 98.2 F 78 16 116/71 95 06/19/24 08:00 06/19/24 08:00 06/19/24 08:00 06/19/24 08:00 06/19/24 08:00 Laboratory Data at Discharge: WBC 7.40 thou/uL (4.3-10.9) 06/19/24 04:01 Hgb 10.4 g/dL (13.6-17.9) L 06/19/24 04:01 Hct 32.2 % (39.6-49.0) L 06/19/24 04:01 Plt Count 110 thou/uL (152-406) L D 06/19/24 04:01 PT 14.3 SECONDS (10-13.0) H 06/14/24 19:47 INR 1.27 06/14/24 19:47 Sodium 132 mEq/L (136-145) L 06/19/24 04:01 Potassium 4.4 mEq/L (3.5-5.1) 06/19/24 04:01 BUN 21 mg/dL (7-18) H 06/19/24 04:01 Creatinine 0.69 mg/dL (0.70-1.30) L 06/19/24 04:01 Glucose 127 mg/dL (74-106) H 06/19/24 04:01 Phosphorus Cancelled 06/15/24 Unknown Magnesium Cancelled 06/15/24 Unknown Total Bilirubin 0.5 mg/dL (0.2-1.0) 06/14/24 19:47 AST 20 U/L (15-37) 06/14/24 19:47 ALT 16 U/L (16-61) 06/14/24 19:47 Alkaline Phosphatase 95 U/L (45-117) 06/14/24 19:47 Triglycerides 79 mg/dL (<150) 06/15/24 04:50 Cholesterol 77 mg/dL (<200) 06/15/24 04:50 HDL Cholesterol 27 mg/dL (40-60) L 06/15/24 04:50 Cholesterol/HDL Ratio 2.85 06/15/24 04:50 Lipase 12 U/L (13-75) L 06/14/24 19:47 <Sarah Devine - Last Filed: 06/19/24 19:14> Vital Signs/Physical Exam: Temp Pulse Resp BP Pulse Ox 98.0 F 77 16 129/80 16 L 06/19/24 16:00 06/19/24 16:00 06/19/24 16:00 06/19/24 16:00 06/19/24 16:00 General: Alert, In no apparent distress, Oriented x3 Laboratory Data at Discharge: WBC 7.40 thou/uL (4.3-10.9) 06/19/24 04:01 Hgb 10.4 g/dL (13.6-17.9) L 06/19/24 04:01 Hct 32.2 % (39.6-49.0) L 06/19/24 04:01 Plt Count 110 thou/uL (152-406) L D 06/19/24 04:01 PT 14.3 SECONDS (10-13.0) H 06/14/24 19:47 INR 1.27 06/14/24 19:47 Sodium 132 mEq/L (136-145) L 06/19/24 04:01 Potassium 4.4 mEq/L (3.5-5.1) 06/19/24 04:01 BUN 21 mg/dL (7-18) H 06/19/24 04:01 Creatinine 0.69 mg/dL (0.70-1.30) L 06/19/24 04:01 Glucose 127 mg/dL (74-106) H 06/19/24 04:01 Phosphorus Cancelled 06/15/24 Unknown Magnesium Cancelled 06/15/24 Unknown Total Bilirubin 0.5 mg/dL (0.2-1.0) 06/14/24 19:47 AST 20 U/L (15-37) 06/14/24 19:47 ALT 16 U/L (16-61) 06/14/24 19:47 Alkaline Phosphatase 95 U/L (45-117) 06/14/24 19:47 Triglycerides 79 mg/dL (<150) 06/15/24 04:50 Cholesterol 77 mg/dL (<200) 06/15/24 04:50 HDL Cholesterol 27 mg/dL (40-60) L 06/15/24 04:50 Cholesterol/HDL Ratio 2.85 06/15/24 04:50 Lipase 12 U/L (13-75) L 06/14/24 19:47 <Bam Ruiz - Last Filed: 06/26/24 10:25> <Sarah Devine - Last Filed: 06/19/24 19:14> Time spent managing pt's care (in minutes): 40 <Bam Ruiz - Last Filed: 06/26/24 10:25> Home Medications: Empagliflozin [Jardiance] 10 mg PO DAILY 04/24/24 Ferrous Sulfate 325 mg PO BID 04/24/24 Gabapentin 300 mg PO TID 04/24/24 Insulin Glargine,Hum.rec.anlog [Lantus] 17 unit SQ BEDTIME 04/24/24 Tamsulosin [Flomax*] 0.4 mg PO BID 04/24/24 Allopurinol 100 mg PO DAILY 06/04/24 Ascorbic Acid 1 tab PO DAILY 06/04/24 Atorvastatin Calcium 1 tab PO BEDTIME 06/04/24 Furosemide [Lasix] 1 tab PO SEECOM 06/04/24 Insulin Lispro See Protocol SQ SEECOM 06/04/24 Lidocaine 4% Patch [Lidoderm 5% Patch*] 1 appl TOP BEDTIME 06/04/24 Pantoprazole [Protonix Tab*] 1 tab PO DAILY 06/04/24 Ensure Max Protein 330 ml PO TID #90 can 06/06/24 Hydrocodone 5/APAP 325 [Luverne 5/325*] 1 tab PO Q4H PRN #30 tab 06/06/24 Kj [Kj*] 1 pkt PO BID #60 packet 06/06/24 Apixaban [Eliquis] 5 mg PO BID 30 Days #60 tab 06/19/24 Cefpodoxime Proxetil [Vantin] 200 mg PO BID 5 Days #10 tab 06/19/24 Lidocaine 4% Patch [Lidoderm 5% Patch*] 1 patch TD DAILY #30 patch 06/19/24 Midodrine HCl [Proamatine*] 10 mg PO TID 30 Days #90 tab 06/19/24 Pharmacy Consult 1 ea XX DAILYPRN PRN ea 06/19/24 Pharmacy Consult 1 ea XX DAILYPRN PRN ea 06/19/24 New Medications: Apixaban [Eliquis] 5 mg PO BID 30 Days #60 tab Lidocaine 4% Patch [Lidoderm 5% Patch*] 1 patch TD DAILY #30 patch Midodrine HCl [Proamatine*] 10 mg PO TID 30 Days #90 tab Cefpodoxime Proxetil [Vantin] 200 mg PO BID 5 Days #10 tab Physician Discharge Instructions: -DC IV and DC home -Follow-up with PCP in 1 to 2 weeks -Follow-up with Cardiology in 1 to 2 weeks -Please call Dr. Ruiz at [phone] if any questions regarding hospital stay -Please call nursing station at [phone] if any nursing or medication questions -Return to the emergency room if symptoms worsen Followup: OOT,OOT [Primary Care Provider] -
[2024-06-19 17:38] VITALS: BP 129/80; TEMP 98
== END 2024-06-19 19:35 | DRG 871 ==
LOC: ER 18:46 → ERHOLD 23:58 → 2ND 06-15 13:22 → UNDODISIN 06-19 12:58
PROVIDERS: ADMIT Internal Medicine; ATTEND Hospitalist
DX: A41.9 Sepsis, unspecified organism (principal); J18.9 Pneumonia, unspecified organism; N17.9 Acute kidney failure, unspecified; C18.9 Malignant neoplasm of colon, unspecified; I82.412 Acute embolism and thrombosis of left femoral vein; I82.4Y2 Acute embolism and thrombosis of unspecified deep veins of left proximal lower extremity; I82.411 Acute embolism and thrombosis of right femoral vein; I82.4Y1 Acute embolism and thrombosis of unspecified deep veins of right proximal lower extremity; D64.9 Anemia, unspecified; I10 Essential (primary) hypertension; I27.20 Pulmonary hypertension, unspecified; E11.9 Type 2 diabetes mellitus without complications; I34.0 Nonrheumatic mitral (valve) insufficiency; L89.899 Pressure ulcer of other site, unspecified stage; N40.0 Benign prostatic hyperplasia without lower urinary tract symptoms; Z88.0 Allergy status to penicillin; Z79.4 Long term (current) use of insulin; Z88.1 Allergy status to other antibiotic agents; Z11.52 Encounter for screening for COVID-19; Z79.899 Other long term (current) drug therapy
CPT/HCPCS: 36415; 71045; 80048; 80061; 80076; 80202; 81001; 82947; 83605; 83690; 83735; 83880; 84100; 84132; 84484; 85025; 85027; 85610; 87040; 87070; 87086; 87088; 87428; 93005; 93306; 93970; 94760; 96361; 96365; 96367; 96375; 97110; 97161; 99285; J0692; J1644; J1815; J2003; J2185; J3370; J7030; J7050